=== PATIENT | male | born 1950 | race Caucasian/White ===

== ENCOUNTER 2017-02-17 13:41 | Inpatient (IN) | payer MEDICARE, OTHER ==
[~2017-02-17] VITALS: Ht 170.2 cm; Wt 117.2 kg
[~2017-02-17 13:41] MED LIST: ALPR0.5T6 PO; ASPI81TA3 PO; ATOR20TA38 PO; DIGO125T PO; PANT40TA3 PO; PARO20TA58 PO; WARF6TAB35 PO
--- NOTE | 2017-02-17 14:04 | ERA ---
ER Documentation Chief Complaint Date/Time DATE: 02/17/17 TIME: 14:04 Chief Complaint CHEST PAIN, SOB, SENT BY DR VIJAYA MAIN The patient is a 66-year-old male, presenting to the ER because of palpitation for a week and a half, associated with chest discomfort and dyspnea. He saw his duster tender Dr. Gamez 3 days ago who referred him to [facility] for ablation. He came back to the ER today because of persistent palpitation. He called his duster tender's office Dr. Ba, who referred him to the ER. He denies syncope, near syncope, neck pain, chest pain with exertion of vomiting or diaphoresis. He denies abdominal pain, vomiting, dysuria, diarrhea, constipation. He complains of chronic bilateral lower extremity edema He smokes , denies drinking Past medical history: Dyslipidemia, depression, anxiety, CAD, atrial fibrillation Past surgical history: Stent PCI, pacemaker ROS All systems reviewed and are negative except as per history of present illness. Medications Home Meds Reported Medications Warfarin Sodium* (Coumadin*) 3 Mg Tablet, 9 MG PO SAT AND SUN, TAB 02/17/17 Warfarin Sodium* (Warfarin Sodium*) 6 Mg Tablet, 6 MG PO FRIDAY THRU FRIDAY, TAB 02/17/17 Digoxin* (Digoxin*) 0.125 Mg Tab, 0.125 MG PO DAILY, #30 TAB 01/11/16 Atorvastatin Calcium* (Atorvastatin Calcium*) 20 Mg Tablet, 20 MG PO QHS, #30 TAB 01/11/16 Aspirin* (Aspirin* Chew) 81 Mg Tab.chew, 81 MG PO DAILY, TAB.CHEW 07/22/14 Alprazolam* (Alprazolam*) 0.5 Mg Tablet, 0.5 MG PO BID, TAB 07/22/14 Paroxetine Hcl* (Paxil*) 20 Mg Tablet, 20 MG PO DAILY, TAB 03/07/14 Discontinued Reported Medications Pantoprazole* (Protonix*) 40 Mg Tablet.dr, 40 MG PO DAILY, TAB 04/23/16 Warfarin Sodium* (Warfarin Sodium*) 6 Mg Tablet, 6 MG PO QPM, TAB 05/04/15 Allergies Allergies: Coded Allergies: No Known Allergy (Verified , 02/17/17) PMhx/Soc History of Surgery: Yes (CARDIAC STENT X2) Anesthesia Reaction: No Hx Neurological Disorder: No Hx Respiratory Disorders: No Hx Cardiac Disorders: Yes (A-FIB) Hx Psychiatric Problems: No Hx Miscellaneous Medical Probl: Yes (HLD) Hx Alcohol Use: No Hx Substance Use: No Hx Tobacco Use: Yes (10-15 CIGS/DAY) Physical Exam Vitals Vital Signs Date Time Temp Pulse Resp B/P Pulse Ox O2 Delivery O2 Flow Rate FiO2 02/17/17 14:34 118 18 117/58 98 02/17/17 13:44 97.4 124 18 161/122 96 Physical Exam Const: No acute distress. Head: Atraumatic. Eyes: Normal Conjunctiva. ENT: Normal External Ears, Nose and Mouth. Neck: Full range of motion. No meningismus. Resp: Bibasilar crackle Cardio: Irregularly irregular tachycardic Abd: Soft, non distended, normal bowel sounds, non tender. Skin: No petechiae or rashes. Back: No midline or flank tenderness. Ext: Bilateral leg edema, no calf tenderness Neur: Awake and alert. No focal deficit Psych: Normal Mood and Affect. Result Diagram: 02/17/17 1432 02/17/17 1432 Results 24 hrs Laboratory Tests Test 02/17/17 13:32 02/17/17 14:32 02/17/17 14:50 Prothrombin Time Pending Prothrombin Time Ratio 2.8 INR International Normalized Ratio 3.56 Activated Partial Thromboplast Time 43.9Sec White Blood Count 6.710^3/ul Red Blood Count 4.7010^6/ul Hemoglobin 13.9g/dl Hematocrit 40.4% Mean Corpuscular Volume 86.0fl Mean Corpuscular Hemoglobin 29.6pg Mean Corpuscular Hemoglobin Concent 34.4g/dl Red Cell Distribution Width 13.3% Platelet Count 94551^3/UL Mean Platelet Volume 11.1fl Neutrophils % 53.6% Lymphocytes % 37.3% Monocytes % 6.0% Eosinophils % 2.3% Basophils % 0.5% Nucleated Red Blood Cells % 0.0/100WBC Neutrophils # 3.610^3/ul Lymphocytes # 2.510^3/ul Monocytes # 0.410^3/ul Eosinophils # 0.210^3/ul Basophils # 0.010^3/ul Nucleated Red Blood Cells # 0.010^3/ul Sodium Level 138mmol/L Potassium Level 3.8mmol/L Chloride Level 106mmol/L Carbon Dioxide Level 25mmol/L Anion Gap 11 Blood Urea Nitrogen 18mg/dl Creatinine 1.09mg/dl Glucose Level 113mg/dl Calcium Level 8.8mg/dl Troponin I < 0.012ng/ml B-Type Natriuretic Peptide 849PG/ML Digoxin Level < 0.4ng/ml Current Medications Medications (Trade) Dose Ordered Sig/Beverly Route PRN Reason Start Time Stop Time Status Last Admin Dose Admin Aspirin (Halfprin) 162 mg ONCE ONCE PO 02/17/17 16:00 02/17/17 16:01 DC Nitroglycerin (Nitroglycerin 2% Oint) 1 inch ONCE ONCE TD 02/17/17 16:00 02/17/17 16:01 DC Furosemide (Lasix) 40 mg ONCE ONCE IV 02/17/17 16:00 02/17/17 16:01 DC Procedures/[place] [address] Radiology Main Line: [phone] DIAGNOSTIC IMAGING REPORT Patient: RAS CUEVAS : 1950 Age: 66 Sex: M MR #: [id number] DOS: 02/17/17 1405 Ordering MD: BRADY MENDOZA MD Location: E/R Room/Bed: PROCEDURE: Chest x-ray CLINICAL INDICATION: Chest pain TECHNIQUE: Chest single view COMPARISON: 02/07/2016 FINDINGS: As before there is left chest dual lead pacemaker. Stable mild cardiomegaly seen. Pulmonary vessels are normal in caliber. Lungs clear. Costophrenic angles sharp. Bony thorax is unremarkable IMPRESSION: 1. Stable mild cardiomegaly. 2. Pacemaker RPTAT: HH .Manoj Peña MD, Date Time Electronically viewed and signed by .Manoj Peña MD, on 02/17/2017 14:38 .W/ CC: BRADY MENDOZA MD EKG: Read by emergency physician Rate/Rhythm: Atrial fibrillation 136 beats/min, RVR QRS, ST, T-waves: No ST elevation, no T inversion Impression: Abnormal EKG TSH is pending MEDICAL MAKING DECISION: The patient is a 66-year-old male, presenting with acute atrial fibrillation with rapid ventricular response, acute CHF, acute chest pain syndrome, acute coagulopathy. He was treated with aspirin 160 mg p.o. and 1 inch of nitroglycerin ointment for acute chest pain, Lasix 40 mg IV for acute CHF, digoxin 0.25 mg IV for acute atrial fibrillation with RVR. His heart rate has been running between 100-130 The differential diagnoses considered include but are not limited to acute coronary syndrome, acute myocardial infarction, pericarditis, pulmonary embolism , aortic dissection, pneumonia, pleural effusion, pneumothorax, GERD, chest wall pain, electrolyte imbalance. Critical Care: Time: 35 minutes excluding all billable procedures. Treatments/Evaluations: Close monitoring and treatment of unstable vital signs, cardiorespiratory, and neurologic status, while maintaining tight balance of fluid, respiratory, and cardiac interventions. Consultation: I have tried to contact his duster tender Dr. Ba since the patient arrived, however I was unable to speak with him regarding cardioversion. The patient was treated with digoxin 0.25 mg IV with good response Departure Diagnosis: Primary Impression: Atrial fibrillation with RVR Additional Impressions: CHF (congestive heart failure) Coagulopathy Chest pain Condition: Stable Comments I discussed the findings with the patient. I discussed the patient with the on- call hospitalist Dr. Douglass who was made aware of the lab, the treatment, the patient condition and my inability to contact his duster tender Dr. Ba. The patient is admitted to telemetry at 3:35 PM BRADY MENDOZA MD Feb 17, 2017 14:04
[2017-02-17] MEDS ORDERED: WARF6TAB35 PO (14:36)
[2017-02-17] MEDS ORDERED: WARF3TAB PO (14:36)
--- NOTE | 2017-02-17 14:38 | RADRPT ---
PROCEDURE: Chest x-ray CLINICAL INDICATION: Chest pain TECHNIQUE: Chest single view COMPARISON: 02/07/2016 FINDINGS: As before there is left chest dual lead pacemaker. Stable mild cardiomegaly seen. Pulmonary vessel s are normal in caliber. Lungs clear. Costophrenic angles sharp. Bony thorax is unremarkable IMPRESSION: 1. Stable mild cardiomegaly. 2. Pacemaker RPTAT: HH .Manoj Peña MD, MD Date Time Electronically viewed and signed by .Manoj Peña MD, on 02/17/2017 14:38 .W/
[2017-02-17 14:43] LABS: ADD SCAN DIFF NO
[2017-02-17 14:44] LABS: BASOPHILS % 0.5 % (0.0-2.0); EOSINOPHILS # 0.2 10^3/ul (0.0-0.5); EOSINOPHILS % 2.3 % (0.0-7.0); HEMATOCRIT 40.4 % (42.0-52.0); HEMOGLOBIN 13.9 g/dl (14.0-18.0); LYMPHOCYTES # 2.5 10^3/ul (0.8-2.9); LYMPHOCYTES % 37.3 % (15.0-51.0); MEAN CORPUSCULAR HEMOGLOBIN 29.6 pg (29.0-33.0); MEAN CORPUSCULAR HGB CONC 34.4 g/dl (32.0-37.0); MEAN PLATELET VOLUME 11.1 fl (7.4-10.4); MONOCYTE # 0.4 10^3/ul (0.3-0.9); NEUTROPHIL # 3.6 10^3/ul (1.6-7.5); NEUTROPHILS % 53.6 % (39.0-77.0); PLATELET COUNT 207 10^3/UL (140-415); RED CELL DISTRIBUTION WIDTH 13.3 % (11.5-14.5); WHITE BLOOD COUNT 6.7 10^3/ul (4.8-10.8)
[2017-02-17 15:00] LABS: INR 3.56; PT RATIO 2.8
[2017-02-17 15:01] LABS: PARTIAL THROMBOPLASTIN TIME 43.9 Sec (25.0-35.0)
[2017-02-17 15:05] LABS: ANION GAP 11 (8-16); BLOOD UREA NITROGEN 18 mg/dl (7-20); CALCIUM 8.8 mg/dl (8.4-10.2); CARBON DIOXIDE 25 mmol/L (21-31); CHLORIDE 106 mmol/L (97-110); CREATININE 1.09 mg/dl (0.61-1.24); GLUCOSE 113 mg/dl (70-220); POTASSIUM 3.8 mmol/L (3.5-5.1); SODIUM 138 mmol/L (135-144)
[2017-02-17 15:17] LABS: B-TYPE NATRIURETIC PEPTIDE 849 PG/ML (0-125); TROPONIN-I < 0.012 ng/ml (0.00-0.12)
[2017-02-17] MEDS ORDERED: ASPIRIN (EC) 81 MG TAB PO ONE (16:00)
[2017-02-17] MEDS ORDERED: FUROSEMIDE 40 MG INJ IV ONE (16:00)
[2017-02-17] MEDS ORDERED: NITROGLYCERIN 2% 1 GM OINT PKT TD ONE (16:00)
[2017-02-17 16:26] LABS: PROTIME 34.5 Sec (12.2-14.2)
[2017-02-17] MEDS ORDERED: DIGOXIN 500 MCG INJ IV ONE (16:30)
[2017-02-17] MEDS ORDERED: AMIODARONE 150MG/D5W BOLUS 100 ML IV ONE (19:30)
[2017-02-17] MEDS ORDERED: AMIODARONE 900 MG in DEXTROSE 5% 482 ML IV SCH (19:30)
[2017-02-17] MEDS ORDERED: METOPROLOL 5 MG INJ IV PRN (19:30)
[2017-02-17 20:46] LABS: CREATINE KINASE 37 IU/L (23-200)
[2017-02-17 21:00] LABS: CK-MB 0.56 ng/ml (0.0-2.4); TROPONIN-I < 0.012 ng/ml (0.00-0.12)
[2017-02-17] MEDS: ATENOLOL 25 MG TAB PO SCH (21:00)
[2017-02-17] MEDS: DIGOXIN 500 MCG INJ IV SCH (22:30)
--- NOTE | 2017-02-17 22:31 | CONS ---
DATE OF ADMISSION: 02/17/2017 DATE OF CONSULTATION: 02/17/2017 REASON FOR CONSULTATION: Atrial fibrillation with rapid ventricular response, chest pain. REQUESTING PHYSICIAN: Dr. Mendoza from emergency department. HISTORY OF PRESENT ILLNESS: Mr. Wu is a 66-year-old male known to myself as a primary office pat ient with history of atrial fibrillation, status post prior DC cardioversion in 04/2016 on Coumadin; dyslipidemia, hypertension, coronary artery disease, status post prior PTCA and stent placement in 2011 for acute myocardial infarction, history of myocardial infarction, cardiomyopathy with decrease d left ventricular ejection fraction last known approximately 40% who presented with complaints of p ersistent palpitations, shortness of breath, chest pain. The patient had recently been seen by his primary refrigeration supervisor, Dr. Gamez, who has referred him for outpatient ablation, but patient p resented to [facility] due to uncontrollable symptoms. PAST MEDICAL HISTORY: As above in HPI. MEDICATIONS CURRENTLY IN HOSPITAL: Pending. MEDICATIONS PRIOR TO ADMIT: 1. Coumadin 6 mg alternating with 9 mg. 2. Atorvastatin 20 mg at bedtime. 3. Digoxin 0.125 mg daily. 4. Aspirin 81 mg daily. 5. Xanax 0.5 b.i.d. 6. Paxil 20 mg daily. ALLERGIES: NO KNOWN DRUG ALLERGIES. SOCIAL HISTORY: No tobacco, ETOH, or illicit drug use. FAMILY HISTORY: No history of sudden cardiac or early CAD. REVIEW OF SYSTEMS: As above in HPI. CONSTITUTIONAL: No fevers, chills. PULMONARY: Shortness of breath. CARDIOVASCULAR: Palpitations, atrial fibrillation, cardiomyopathy. GASTROINTESTINAL: No vomiting. GENITOURINARY: No hematuria. MUSCULOSKELETAL: Degenerative joint disease. PSYCHIATRIC: Anxiety. NEUROLOGIC: No documented history of CVA. PHYSICAL EXAMINATION: VITAL SIGNS: Temperature 97.4, blood pressure 109/82, pulse 99, respiratory rate 13, saturating 98% . GENERAL: The patient is alert, awake, complaining of palpitations, shortness of breath. NECK: JVP approximately 8 to 9 cm of water. CHEST: Fair movement throughout with mildly decreased breath sounds at bases bilaterally. HEART: Irregularly irregular, tachycardic, I/ systolic murmur, nondisplaced PMI. ABDOMEN: Positive bowel sounds, soft. EXTREMITIES: Trace edema, 1+ pulses bilaterally, posterior tibial. LABORATORIES: As above in HPI with additionally since admit, BNP of 849. Troponin negative. TSH 2 .17. Sodium 138, potassium 3.8, creatinine 1.0, BUN 18. White blood count 6.7, hemoglobin 13.9, pl atelet count 207. INR supratherapeutic at 3.56. IMAGING STUDIES: As above in HPI. No further imaging studies for my review at this time. ELECTROCARDIOGRAM: As above in HPI. No further electrocardiograms for my review at this time. IMPRESSION: 1. Atrial fibrillation with rapid ventricular response. 2. Abnormal electrocardiogram, assess for acute coronary syndrome. 3. Chest pain, likely secondary to patient's atrial fibrillation with rapid ventricular response __ __. 4. Shortness of breath. 5. History of cardiomyopathy, decreased left ventricular ejection fraction last known approximately 40% by prior echo in 12/2015. 6. Dyslipidemia. 7. Coagulopathy secondary to Coumadin. RECOMMENDATIONS: 1. At this time, I would admit patient to telemetry monitoring and follow rhythm and rate control c losely. 2. Start patient on beta lise to improve symptoms and for treatment of cardiomyopathy and additi onally give patient a very low dose ALLAN inhibitor as tolerated given history of cardiomyopathy. 3. Will give patient amiodarone load in thoughts of attempting real DC cardioversion and SAMEERA on the following day, if the patient does not convert, as the patient is highly symptomatic at this time. 4. Check a TSH to further assess the patient's current thyroid state and its contribution to possib le episodes of atrial fibrillation and rule out the patient for myocardial infarction to ensure the patient's chest pain is not due to acute coronary syndrome, such as acute myocardial infarction. 5. Additionally, will check a fasting lipid panel and initiate lipid-lowering medication as necessa ry. Thank you for allowing me to take part in the care of this patient. I will continue to follow very closely with you with further recommendations to be made as the patient progresses through his [facility] clinical course. Dictated By: MALI NOONAN/ZAKI Conf#: [id number] DID#: [id number] CC: BRADY MENDOZA MD;*EndCC*
[2017-02-17 23:12] VITALS: TEMP 97.7
[2017-02-18] VITALS (11 sets, daily range): BP systolic 111–148; BP diastolic 74–94; PULSE 84–94; RESP 18–20; Ht 170.2 cm; Wt 117.2 kg
[2017-02-18] MEDS: DIGOXIN 500 MCG INJ IV SCH
[2017-02-18] MEDS ORDERED: NACL 0.9% 3 ML SYG IV SCH (01:00)
[2017-02-18] MEDS ORDERED: ZOLPIDEM 5 MG TAB PO PRN (01:00)
[2017-02-18] MEDS ORDERED: MAGNESIUM HYDROXIDE 30ML CUP PO PRN (01:00)
[2017-02-18] MEDS ORDERED: DOCUSATE SODIUM 100 MG CAP PO PRN (01:00)
[2017-02-18] MEDS ORDERED: ACETAMINOPHEN 325 MG TAB PO PRN (01:00)
[2017-02-18] MEDS ORDERED: morphine 2 MG INJ IV PRN (01:00)
[2017-02-18] MEDS ORDERED: HYDROCODONE/APAP (5/325) TAB PO PRN (01:00)
[2017-02-18] MEDS ORDERED: ONDANSETRON 4 MG INJ IV PRN (01:00)
[2017-02-18] MEDS: D5W-0.45 NACL + KCL 20 MEQ 1,000 ML IV SCH ×3 (01:45→20:47)
[2017-02-18 07:56] LABS: ADD SCAN DIFF NO
[2017-02-18 08:06] LABS: BASOPHILS % 0.8 % (0.0-2.0); EOSINOPHILS # 0.2 10^3/ul (0.0-0.5); EOSINOPHILS % 3.4 % (0.0-7.0); HEMATOCRIT 40.3 % (42.0-52.0); HEMOGLOBIN 13.8 g/dl (14.0-18.0); LYMPHOCYTES # 2.2 10^3/ul (0.8-2.9); LYMPHOCYTES % 41.5 % (15.0-51.0); MEAN CORPUSCULAR HEMOGLOBIN 29.6 pg (29.0-33.0); MEAN CORPUSCULAR HGB CONC 34.2 g/dl (32.0-37.0); MEAN CORPUSCULAR VOLUME 86.3 fl (82.0-101.0); MEAN PLATELET VOLUME 11.1 fl (7.4-10.4); MONOCYTE # 0.4 10^3/ul (0.3-0.9); MONOCYTES % 7.4 % (0.0-11.0); NEUTROPHIL # 2.5 10^3/ul (1.6-7.5); NEUTROPHILS % 46.7 % (39.0-77.0); PLATELET COUNT 185 10^3/UL (140-415); RED BLOOD COUNT 4.67 10^6/ul (4.70-6.10); RED CELL DISTRIBUTION WIDTH 13.3 % (11.5-14.5); WHITE BLOOD COUNT 5.3 10^3/ul (4.8-10.8)
--- NOTE | 2017-02-18 08:21 | CONS ---
Date/Time of Note Date/Time of Note DATE: 02/18/17 TIME: 08:19 Assessment/Plan Assessment/Plan Additional Assessment/Plan 1. Atrial fibrillation with rapid ventricular response- rate well rx now - plan for dc/Cv tomorrow. 2. Abnormal electrocardiogram, assess for acute coronary syndrome - a. fib noted. 3. Chest pain, likely secondary to patient's atrial fibrillation with rapid ventricular response - rate better now - pt has Ablation scheduled in mid March. 4. Shortness of breath- better with decreased rate. 5. History of cardiomyopathy, decreased left ventricular ejection fraction last known approximately 40% by prior echo in 12/2015. 6. Dyslipidemia. 7. Coagulopathy secondary to Coumadin- INR in good range. Consultation Date/Type/Reason Admit Date/Time Feb 17, 2017 at 15:40 Initial Consult Date 24 HR Interval Summary Free Text/Dictation NO acute events - rate better controlled - CV planned tomorrow. ROS: No fever, no chills, no nausea, no vomiting, no diarrhea/constipation No recent weight changes No chest pain, no PND, no orthopnea No dizziness, blurred vision No thirst, no heat or cold intolerance Exam/Review of Systems Vital Signs Vitals Vital Signs Date Time Temp Pulse Resp B/P Pulse Ox O2 Delivery O2 Flow Rate FiO2 02/18/17 08:12 98.2 77 18 123/81 95 02/17/17 23:12 Room Air Intake and Output 02/17/17 02/17/17 02/18/17 15:00 23:00 07:00 Intake Total 425 ml Balance 425 ml Exam General: WN/WD/NAD, AOx 3 HEENT: Unicetric/atraumatic/EOMI (follow commands) NECK: JVD elevated, no thyromegaly Lymph: no lymphadenopathy HEART: IR IRregular with no S3, II/ systolic murmur at apex LUNGS: Coarse sounds ABD: soft, NT, ND, +BS : Intact Neuro: non focal SKIN: chronic changes EXT: trace edema Results Result Diagram: 02/18/17 0743 02/17/17 1432 Results 24 hrs Laboratory Tests Test 02/17/17 13:32 02/17/17 14:30 02/17/17 14:32 02/17/17 14:50 Prothrombin Time 34.5 H Prothrombin Time Ratio 2.8 INR International Normalized Ratio 3.56 Activated Partial Thromboplast Time 43.9 H B-Type Natriuretic Peptide 829 H 849 H White Blood Count 6.7 Red Blood Count 4.70 Hemoglobin 13.9 L Hematocrit 40.4 L Mean Corpuscular Volume 86.0 Mean Corpuscular Hemoglobin 29.6 Mean Corpuscular Hemoglobin Concent 34.4 Red Cell Distribution Width 13.3 Platelet Count 207 Mean Platelet Volume 11.1 #H Neutrophils % 53.6 Lymphocytes % 37.3 Monocytes % 6.0 Eosinophils % 2.3 Basophils % 0.5 Nucleated Red Blood Cells % 0.0 Neutrophils # 3.6 Lymphocytes # 2.5 Monocytes # 0.4 Eosinophils # 0.2 Basophils # 0.0 Nucleated Red Blood Cells # 0.0 Sodium Level 138 Potassium Level 3.8 Chloride Level 106 Carbon Dioxide Level 25 Anion Gap 11 Blood Urea Nitrogen 18 Creatinine 1.09 Glucose Level 113 Calcium Level 8.8 Troponin I < 0.012 Thyroid Stimulating Hormone (TSH) 2.170 Digoxin Level < 0.4 L Test 02/17/17 20:00 02/18/17 00:50 02/18/17 07:43 Creatine Kinase 37 Creatine Kinase Index 1.5 Creatinine Kinase MB (Mass) 0.56 Troponin I < 0.012 < 0.012 White Blood Count 5.3 # Red Blood Count 4.67 L Hemoglobin 13.8 L Hematocrit 40.3 L Mean Corpuscular Volume 86.3 Mean Corpuscular Hemoglobin 29.6 Mean Corpuscular Hemoglobin Concent 34.2 Red Cell Distribution Width 13.3 Platelet Count 185 Mean Platelet Volume 11.1 H Neutrophils % 46.7 Lymphocytes % 41.5 Monocytes % 7.4 Eosinophils % 3.4 Basophils % 0.8 Nucleated Red Blood Cells % 0.0 Neutrophils # 2.5 Lymphocytes # 2.2 Monocytes # 0.4 Eosinophils # 0.2 Basophils # 0.0 Nucleated Red Blood Cells # 0.0 Medications Medications Current Medications Atenolol (Tenormin) 25 mg BID PO ; Start 02/17/17 at 21:00 Metoprolol Tartrate 5 mg 5 mg Q4H PRN IV hr>110 hOLD sbp<100; Start 02/17/17 at 19:30 Potassium Chloride/Dextrose/ Sod Cl (D5-1/2ns + KCl 20 Meq) 1,000 ml @ 100 mls/ hr Q10H IV Last administered on 02/18/17t 01:45; Admin Dose 100 MLS/HR; Start 02/18/17 at 00:47 Ondansetron HCl (Zofran Inj) 4 mg Q6H PRN IV NAUSEA AND/OR VOMITING; Start at 01:00 Acetaminophen (Tylenol Tab) 650 mg Q6H PRN PO PAIN LEVEL 1-3 OR FEVER; Start at 01:00 Acetaminophen/ Hydrocodone Bitart (Romance (5/325)) 1 tab Q6H PRN PO MODERATE PAIN LEVEL 4-6; Start 02/18/17 at 01:00 Morphine Sulfate (morphine) 2 mg Q4H PRN IV SEVERE PAIN LEVEL 7-10; Start 02/18 at 01:00 Docusate Sodium (Colace) 100 mg Q12H PRN PO CONSTIPATION; Start 02/18/17 at 01: 00 Magnesium Hydroxide (Milk Of Mag) 30 ml DAILY PRN PO CONSTIPATION; Start at 01:00 Zolpidem Tartrate (Ambien) 5 mg QHS PRN PO SLEEP; Start 02/18/17 at 01:00 Enoxaparin Sodium (Lovenox) 40 mg DAILY SC ; Start 02/18/17 at 09:00 Alprazolam (Xanax) 0.5 mg BID PO ; Start 02/18/17 at 09:00 Aspirin (Aspirin) 81 mg DAILY PO ; Start 02/18/17 at 09:00 Atorvastatin Calcium (Lipitor) 20 mg QHS PO ; Start 02/18/17 at 21:00 Digoxin (Digoxin) 0.125 mg DAILY@13 PO ; Start 02/18/17 at 13:00 Paroxetine HCl (Paxil) 20 mg DAILY PO ; Start 02/18/17 at 09:00 Warfarin Sodium (Coumadin) 6 mg DAILY@17 PO ; Start 02/18/17 at 17:00 RIVER GALLAGHER MD Feb 18, 2017 08:21
[2017-02-18 08:29] LABS: INR 2.74; PROTIME 29.4 Sec (12.2-14.2); PT RATIO 2.3
[2017-02-18 08:39] LABS: CALCIUM 8.9 mg/dl (8.4-10.2); CREATININE 0.98 mg/dl (0.61-1.24)
[2017-02-18 08:51] LABS: T3 UPTAKE 35.4 % (23.5-40.5)
[2017-02-18] MEDS: ATENOLOL 25 MG TAB PO SCH ×2 (09:00→20:38)
[2017-02-18] MEDS ORDERED: ALPRAZOLAM 0.5 MG TAB PO SCH (09:00)
[2017-02-18] MEDS: ASPIRIN 81 MG TAB PO SCH (09:16)
[2017-02-18] MEDS: ALPRAZOLAM 0.25 MG TAB PO SCH ×2 (09:16→20:35)
[2017-02-18] MEDS: PAROXETINE 20 MG TAB PO SCH (09:17)
[2017-02-18] MEDS: ENOXAPARIN 40 MG/0.4 ML SYG SC SCH (09:17)
[2017-02-18 09:41] LABS: CHOL/HDL RATIO 4.7 RATIO
--- NOTE | 2017-02-18 09:54 | HP ---
DATE OF ADMISSION: 02/17/2017 CHIEF COMPLAINT: Palpitations. HISTORY OF PRESENT ILLNESS: The patient is a 66-year-old male with a history of atrial fibrillation , status post prior cardioversion in 2016 as well as reported ablation. The patient is on Coumadin. He does have a history of coronary artery disease status post PCI as well as a history of [place], card iomyopathy with a last known ejection fraction of 40%. The patient does follow up with Dr. Ba and Dr. Gamez. Dr. Gamez did refer him for outpatient ablation, but the patient presents with yessi st pain and palpitations. The patient has no other complaints at this time. PAST MEDICAL HISTORY: As per HPI. MEDICATIONS: 1. Coumadin. 2. Atorvastatin. 3. Digoxin. 4. Aspirin. 5. Xanax. 6. Paxil ALLERGIES: NO KNOWN DRUG ALLERGIES. FAMILY HISTORY: Denies. SOCIAL HISTORY: Denies any tobacco, alcohol, or drug use. REVIEW OF SYSTEMS: A 12-point review of systems is negative except that discussed in the HPI. PHYSICAL EXAMINATION: VITAL SIGNS: Temperature is 98.1, pulse 85, respiratory rate 18, blood pressure is 119/74, saturati on is 95% on room air. GENERAL: No acute distress, alert and oriented. HEENT: Normocephalic, atraumatic. Pupils equal, round, and reactive to light. LUNGS: Clear to auscultation. CARDIOVASCULAR: Irregularly irregular. ABDOMEN: Nondistended, nontender, soft. EXTREMITIES: No clubbing, cyanosis, or edema. LABORATORY DATA: White count 6.7, hemoglobin 13.9, platelets are 207. Chemistry within normal limi ts. Troponins are negative. DIAGNOSTIC DATA: Chest x-ray shows stable mild cardiomegaly, pacemaker. ASSESSMENT AND PLAN: 1. Atrial fibrillation with rapid ventricular response. The patient has been evaluated by Dr. Jose A zhang who is the patient's correctional program specialist. The patient was started on a beta lise. He is also on am iodarone in an attempt to cardiovert. The patient will likely need direct current cardioversion an d transesophageal echocardiogram during this hospitalization if the patient does not convert chemica lly as the patient is symptomatic. The patient's heart rate is currently stable and he is denying a ny chest pain or palpitations at this time. 2. History of myocardial infarction. Continue home medications. 3. History of cardiomyopathy. Continue beta lise and ALLAN inhibitor. 4. Depression. Continue home Paxil. 5. Dyslipidemia. Continue home statin. 6. Prophylaxis. Continue home Coumadin. Dictated By: MU KELLER/ZAKI Conf#: [id number] DID#: [id number]
--- NOTE | 2017-02-18 12:20 | PN ---
DATE: 02/18/2017 SUBJECTIVE: Chart reviewed. The patient currently chest pain free. Telemetry rhythm shows atrial fibrillation with heart rate in about 80s range. All troponins are negative. The patient was seen by Dr. Gamez in cardiology consultation as well. PHYSICAL EXAMINATION: VITAL SIGNS: Blood pressure 111/83, pulse 84, respirations 20, temperature 98.3, saturating 100%. HEENT: Pupils are equal and react to light. Anicteric sclerae. NECK: Supple, no JVD noted, no cervical adenopathy, no carotid bruits heard. LUNGS: Fair breath sounds bilaterally. CARDIOVASCULAR: S1, S2 irregular. ABDOMEN: Soft, nontender. No organomegaly or masses noted. EXTREMITIES: No clubbing, cyanosis, or edema. NEUROLOGICAL: Awake. LABORATORY DATA: Sodium 142, potassium 4.0, chloride 107, CO2 of 28, BUN 16, creatinine 0.98, gluco se 99. WBC 5.3, hemoglobin 13.8, hematocrit 40.3, platelets 185. IMPRESSION: 1. Atrial fibrillation with rapid ventricular response, now heart rate much improved. 2. History of coronary artery disease and myocardial infarction in the past. 3. History of cardiomyopathy. 4. History of depression. 5. History of dyslipidemia. RECOMMENDATIONS: 1. Continue current treatment. 2. Cardiology followup noted. 3. Further per Cardiology. Dictated By: JEMMA DODSON MD, MA/ZAKI Conf#: [id number] DID#: [id number]
[2017-02-18] MEDS: DIGOXIN 0.125 MG TAB PO SCH (13:09)
[2017-02-18] MEDS: WARFARIN 3 MG TAB PO SCH (17:27)
[2017-02-18] MEDS: ATORVASTATIN 20 MG TAB PO SCH (20:35)
[2017-02-19] VITALS (24 sets, daily range): BP systolic 74–148; BP diastolic 51–87; PULSE 78–97; RESP 16–25
[2017-02-19] MEDS: D5W-0.45 NACL + KCL 20 MEQ 1,000 ML IV SCH ×2 (00:13→16:32)
[2017-02-19] MEDS: PAROXETINE 20 MG TAB PO SCH ×2 (09:00→16:29)
[2017-02-19] MEDS: ASPIRIN 81 MG TAB PO SCH (09:00)
[2017-02-19] MEDS: ATENOLOL 25 MG TAB PO SCH ×2 (09:00→20:36)
[2017-02-19] MEDS: ENOXAPARIN 40 MG/0.4 ML SYG SC SCH (09:00)
[2017-02-19] MEDS: ALPRAZOLAM 0.25 MG TAB PO SCH ×3 (09:00→20:36)
[2017-02-19] MEDS: DIGOXIN 0.125 MG TAB PO SCH (13:00)
[2017-02-19] MEDS ORDERED: PROPOFOL 40 ML ONE (13:00)
[2017-02-19] MEDS ORDERED: LIDOCAINE 2% (SDV) 5 ML INJ ONE (13:00)
--- NOTE | 2017-02-19 13:00 | PN ---
DATE: 02/19/2017 SUBJECTIVE: Chart reviewed. The patient remains in atrial fibrillation with controlled heart rate. PHYSICAL EXAMINATION: VITAL SIGNS: Blood pressure 134/87, pulse 80, respirations 20, temperature 97.9, saturating 98%. HEENT: Pupils are equal and react to light. Anicteric sclerae. NECK: Supple, no JVD noted, no cervical adenopathy, no carotid bruits heard. LUNGS: Fair breath sounds bilaterally. CARDIOVASCULAR: S1, S2 irregular. ABDOMEN: Soft, nontender. No organomegaly or masses noted. EXTREMITIES: No clubbing, cyanosis, or edema noted. NEUROLOGICAL: Awake. IMPRESSION: 1. Atrial fibrillation with rapid ventricular response, now heart rate better controlled. 2. History of coronary artery disease and myocardial infarction in the past. 3. History of cardiomyopathy. 4. History of depression. 5. History of dyslipidemia. RECOMMENDATIONS: 1. Continue current treatment. 2. Cardiology followup. Dictated By: JEMMA DODSON MD, MA/ZAKI Conf#: [id number] DID#: [id number]
[2017-02-19] MEDS ORDERED: EPHEDrine SULFATE 50 MG/5 ML SYG ONE (13:03)
--- NOTE | 2017-02-19 13:54 | CONS ---
Date/Time of Note Date/Time of Note DATE: 02/19/17 TIME: 13:50 Assessment/Plan Assessment/Plan Chief Complaint/Hosp Course IMPRESSION: 1. Atrial fibrillation with rapid ventricular response. Now s/p SAMEERA/DCCV with successful conversion back to SR 2. Abnormal electrocardiogram, assess for acute coronary syndrome. 3. Chest pain, likely secondary to patient's atrial fibrillation with rapid ventricular response ____. 4. Shortness of breath. 5. History of cardiomyopathy, decreased left ventricular ejection fraction last known approximately 40% by prior echo in 12/2015. 6. Dyslipidemia. 7. Coagulopathy secondary to Coumadin. Recc: -Tele -Continue BB -Continue coumadin and d/c lovenox -start po amiodarine in attempt to maintain SR -Continue statin/digoxin/atenolol -Follow INR closely Problems: Consultation Date/Type/Reason Admit Date/Time Feb 17, 2017 at 15:40 Initial Consult Date 02/17/2017 Type of Consultation: Cardiology Reason for Consultation AF Referring Provider: SAMIR FISHER Exam/Review of Systems Vital Signs Vitals Vital Signs Date Time Temp Pulse Resp B/P Pulse Ox O2 Delivery O2 Flow Rate FiO2 02/19/17 12:28 95 02/19/17 12:02 97.9 20 134/87 98 02/17/17 23:12 Room Air Intake and Output 02/18/17 02/18/17 02/19/17 15:00 23:00 07:00 Intake Total 100 ml 900 ml 1040 ml Balance 100 ml 900 ml 1040 ml Exam Review of Systems: CONSTITUTIONAL: No fevers, chills. PULMONARY: Sob CARDIOVASCULAR: Positive chest pain/palpitations GASTROINTESTINAL: No nausea/vomiting. GENITOURINARY: No hematuria/dysuria. MUSCULOSKELETAL: No myagias/arthalgias. PSYCHIATRIC: The patient denies depression. NEUROLOGIC: No weakness Constitutional: alert, oriented Psych: no complaints Head: normocephalic ENMT: mucosa pink and moist Neck: jvd (8 cm water), supple Respiratory: clear to auscultation Cardiovascular: regular rate and rhythm Gastrointestinal: non-tender, soft Musculoskeletal: muscle tone (normal) Extremities: other (None) Neurological: other (No focal deficits) Results Result Diagram: 02/18/17 0743 02/18/17 0743 Medications Medications Current Medications Atenolol (Tenormin) 25 mg BID PO ; Start 02/17/17 at 21:00 Metoprolol Tartrate 5 mg 5 mg Q4H PRN IV hr>110 hOLD sbp<100; Start 02/17/17 at 19:30 Potassium Chloride/Dextrose/ Sod Cl (D5-1/2ns + KCl 20 Meq) 1,000 ml @ 100 mls/ hr Q10H IV Last administered on 02/19/17 00:13; Admin Dose 100 MLS/HR; Start 02/18/17 at 00:47 Ondansetron HCl (Zofran Inj) 4 mg Q6H PRN IV NAUSEA AND/OR VOMITING; Start at 01:00 Acetaminophen (Tylenol Tab) 650 mg Q6H PRN PO PAIN LEVEL 1-3 OR FEVER; Start at 01:00 Acetaminophen/ Hydrocodone Bitart ([place] (5/325)) 1 tab Q6H PRN PO MODERATE PAIN LEVEL 4-6; Start 02/18/17 at 01:00 Morphine Sulfate (morphine) 2 mg Q4H PRN IV SEVERE PAIN LEVEL 7-10; Start 02/18 at 01:00 Docusate Sodium (Colace) 100 mg Q12H PRN PO CONSTIPATION; Start 02/18/17 at 01: 00 Magnesium Hydroxide (Milk Of Mag) 30 ml DAILY PRN PO CONSTIPATION; Start at 01:00 Zolpidem Tartrate (Ambien) 5 mg QHS PRN PO SLEEP; Start 02/18/17 at 01:00 Enoxaparin Sodium (Lovenox) 40 mg DAILY SC Last administered on 02/18/17 09:17 ; Admin Dose 40 MG; Start 02/18/17 at 09:00 Aspirin (Aspirin) 81 mg DAILY PO Last administered on 02/18/17 09:16; Admin Dose 81 MG; Start 02/18/17 at 09:00 Atorvastatin Calcium (Lipitor) 20 mg QHS PO Last administered on 02/18/17 20: 35; Admin Dose 20 MG; Start 02/18/17 at 21:00 Digoxin (Digoxin) 0.125 mg DAILY@13 PO Last administered on 02/18/17 13:09; Admin Dose 0.125 MG; Start 02/18/17 at 13:00 Paroxetine HCl (Paxil) 20 mg DAILY PO Last administered on 02/18/17 09:17; Admin Dose 20 MG; Start 02/18/17 at 09:00 Warfarin Sodium (Coumadin) 6 mg DAILY@17 PO Last administered on 02/18/17 17: 27; Admin Dose 6 MG; Start 02/18/17 at 17:00 Alprazolam (Xanax) 0.5 mg BID PO Last administered on 02/18/17 20:35; Admin Dose 0.5 MG; Start 02/18/17 at 09:00 MALI LILLY Feb 19, 2017 13:54
--- NOTE | 2017-02-19 14:06 | CARRPT ---
DATE OF PROCEDURE: 02/19/2017 TYPE OF PROCEDURE: 1. Transesophageal echo. 2. Direct current cardioversion for atrial fibrillation successfully to sinus rhythm. Shock x2 100 and then 150 joules. ATTENDING PHYSICIAN: Dr. Mali Ba. REFERRING PHYSICIAN: Hospitalist, Dr. Fisher TYPE OF ANESTHESIA: MAC under direction of anesthesiologist at bedside with propofol. BRIEF HISTORY: Mr. Wu is a 66-year-old male with history of hypertension, dyslipidemia, paroxysm al atrial fibrillation status post prior DC cardioversion, who has had return of atrial fibrillation, highly symptomatic with shortness of breath, chest pain, palpitations, dizz iness. DESCRIPTION OF PROCEDURE: After informed consent was obtained, the patient was brought to the [facility] cardiac catheterization lab holding room where he was placed on continuous t elemetry monitoring and O2 saturation monitoring and blood pressure cuff cycling every 3 minutes. T he patient had a bite block placed in his mouth and under direction of anesthesiologist, was given p ropofol, MAC anesthesia in order to achieve adequate local anesthesia. At this time, the patient's esophagus was intubated with transesophageal echo probe and using multiplanar imaging and color flow Doppler interrogation, the patient's intracardiac structures were adequately interrogated and with no findings of left atrial appendage thrombus, spontaneous contrast, left atrial appendage velocity greater than ____second and additionally no left ventricular thrombus noted. Subsequently, at this time, the probe was removed. The patient received a shock of 100 joules, unsuccessful in returning him to sinus rhythm and then a shock sync mode 150 joules, which was successful at returning him to sinus rhythm. The patient was allowed to awake from his anesthetized state. This completed the pro cedure. There were no noted complications. FINDINGS: Transesophageal echo showed the patient to have no thrombus or spontaneous contrast from t he left atrial appendage or left atrium Left atrial appendage velocity approximately 50 cm per secon d. Additionally, the patient had no findings of left ventricular thrombus. Direct current cardioversion: The patient received 2 shocks at 100 and followed with 150 joules in sync mode with a second shock successfully returning the patient to sinus rhythm. RECOMMENDATIONS: 1. At this time, patient will be about completely awake from his anesthetized state. 2. Patient will then receive sips of clear liquids and then his diet will be advanced back to full as tolerated. 3. Patient will be continued as medical therapy and will be initiated on p.o. amiodarone in an atte mpt to maintain the patient in sinus rhythm. Dictated By: MALI NOONAN/ZAKI Conf#: [id number] DID#: [id number] CC: SAMIR FISHER;*EndCC*
[2017-02-19] MEDS ORDERED: LEVALBUTEROL (NEB) 0.63 MG/3 ML AMP HHN PRN (14:30)
[2017-02-19] MEDS ORDERED: IPRATROPIUM (NEB) 0.5 MG/2.5 ML AMP HHN PRN (14:30)
[2017-02-19] MEDS: WARFARIN 3 MG TAB PO SCH (16:28)
--- NOTE | 2017-02-19 16:48 | RADRPT ---
Echocardiogram Report Patient Name: RAS CUEVAS Gender: Male Date: 1950 Study Date: 18-Feb-2017 Show Jumping Instructor: Steve Land [facility] Location: [id number] Ref. Physician: MALI BA Quality: Good Procedures: Transthoracic echocardiogram with complete 2D, M-Mode, and doppler examination. Indications: Cardiomyopathy. 2D/M Mode Doppler Measurement Value Normal Ranges Measurement Value Normal Ranges LVIDd 2D 3.6 3.5 - 5.6 cm AV Peak Siva 1.1 m/sec LVIDs 2D 2.9 2.1 - 4.1 cm AV Peak PG 5.0 mmHg LVPWd 2D 1.1 0.6 - 1.1 cm LVOT Peak Siva 0.8 m/sec IVSd 2D 1.2 0.6 - 1.1 cm LVOT Peak PG 2.5 mmHg AoR Diam 2D 3.0 2.0 - 3.7 cm MV E Peak Siva 0.7 m/sec EDV 2D 54.6 cm3 MV A Peak Siva 0.6 m/sec ESV 2D 23.8 cm3 MV E/A 1.2 LA Dimen 2D 4.0 2.3 - 4.0 cm MV Decel Time 274 msec MV Decel [place] 2 MV E/A 1.2 Findings Left Ventricle: Normal left ventricular systolic function. Normal left ventricular cavity size. Mild concentric left ventricular hypertrophy. Ejection fraction is visually estimated at 55 %. Right Ventricle: Normal right ventricular size. Normal right ventricular systolic function. Left Atrium: Upper limit of normal left atrial size. Right Atrium: The right atrium is normal in size. Mitral Valve: Normal appearance and function of the mitral valve with trace physiologic regurgitation. Aortic Valve: No hemodynamically significant aortic stenosis by doppler. Aortic cusps appear mildly calcified. Mild aortic valve regurgitation. Tricuspid Valve: Normal appearance of the tricuspid valve. Unable to obtain RVSP due to minimal presence of tricuspid regurgitation. Pulmonic Valve: Pulmonic valve not well visualized. There is trace pulmonic regurgitation. Pericardium: Normal pericardium with no significant pericardial effusion. Aorta: Normal aortic root. IVC: Normal size and normal respiratory collapse consistent with normal right atrial pressure. Conclusions 1.Normal left ventricular systolic function. Normal left ventricular cavity size. Mild concentric left ventricular hypertrophy. Ejection fraction is visually estimated at 55 %. 2.Normal appearance and function of the mitral valve with trace physiologic regurgitation. 3.Normal appearance of the tricuspid valve. Unable to obtain RVSP due to minimal presence of tricuspid regurgitation. 4.Pulmonic valve not well visualized. There is trace pulmonic regurgitation. Electronically Signed By: Mali Ba 19-Feb-2017 16:47:50 -0700 Patient Name: RAS CUEVAS Study Date: 18-Feb-[id number]
[2017-02-19] MEDS: AMIODARONE 200 MG TAB PO SCH (20:35)
[2017-02-19] MEDS: ATORVASTATIN 20 MG TAB PO SCH (20:36)
[2017-02-20] VITALS (11 sets, daily range): BP systolic 85–144; BP diastolic 44–82; PULSE 66–80; RESP 14–18
[2017-02-20] MEDS: D5W-0.45 NACL + KCL 20 MEQ 1,000 ML IV SCH ×3 (03:23→20:33)
[2017-02-20 08:27] LABS: INR 2.66; PROTIME 28.7 Sec (12.2-14.2); PT RATIO 2.2
[2017-02-20] MEDS: ATENOLOL 25 MG TAB PO SCH ×2 (08:44→20:52)
[2017-02-20] MEDS: AMIODARONE 200 MG TAB PO SCH ×2 (08:47→20:53)
[2017-02-20] MEDS: ASPIRIN 81 MG TAB PO SCH (08:47)
[2017-02-20] MEDS: ALPRAZOLAM 0.25 MG TAB PO SCH ×2 (08:47→20:53)
[2017-02-20] MEDS: PAROXETINE 20 MG TAB PO SCH (08:47)
[2017-02-20] MEDS: ENOXAPARIN 40 MG/0.4 ML SYG SC SCH (08:52)
[2017-02-20] MEDS: DIGOXIN 0.125 MG TAB PO SCH (13:13)
--- NOTE | 2017-02-20 14:21 | PN ---
DATE: 02/20/2017 INTERNAL MEDICINE FOLLOWUP SUBJECTIVE: Chart reviewed. The patient underwent direct cardioversion. Current rhythm shows norm al sinus rhythm at A heart rate of about 66. The patient denies any chest pain, shortness of breath , or other complaints. PHYSICAL EXAMINATION: VITAL SIGNS: Blood pressure 103/64, pulse 66, respirations 14, temperature 98.4. Saturating 100%. HEENT: Pupils are equal and reactive to light. Anicteric sclerae. NECK: Supple, no JVD noted, no cervical adenopathy noted, no carotid bruits heard. LUNGS: Clear to auscultation and percussion. CARDIOVASCULAR: S1, S2 normal. ABDOMEN: Soft, nontender. No organomegaly or masses noted. EXTREMITIES: No clubbing, cyanosis, or edema noted. NEUROLOGICAL: Awake and alert. IMPRESSION: 1. Atrial fibrillation with rapid ventricular response, status post cardioversion, now in sinus rhy thm. 2. History of coronary artery disease and myocardial infarction in the past. 3. History of cardiomyopathy. 4. History of depression. 5. History of dyslipidemia. RECOMMENDATIONS: 1. Continue current treatment. 2. Check PT/INR. 3. Cardiology followup. 4. Most likely will be ready for discharge tomorrow morning. Dictated By: JEMMA DODSON MD, MA/ZAKI Conf#: [id number] DID#: [id number]
[2017-02-20] MEDS: WARFARIN 3 MG TAB PO SCH (17:20)
--- NOTE | 2017-02-20 18:49 | CONS ---
Date/Time of Note Date/Time of Note DATE: 02/20/17 TIME: 18:45 Assessment/Plan Assessment/Plan Chief Complaint/Hosp Course IMPRESSION: 1. Atrial fibrillation with rapid ventricular response. Now s/p SAMEERA/DCCV with successful conversion back to SR and remains in SR 2. Abnormal electrocardiogram, assess for acute coronary syndrome. 3. Chest pain, likely secondary to patient's atrial fibrillation with rapid ventricular response as now improved with DCCV to SR and trop neg x 3 4. Shortness of breath. 5. History of cardiomyopathy, decreased left ventricular ejection fraction last known approximately 40% by prior echo in 12/2015. 6. Dyslipidemia. 7. Coagulopathy secondary to Coumadin.-therapeutic Recc: -Tele -Continue BB as tolerated only given marginal BP -Continue coumadin and d/c lovenox -Continue po amiodarine in attempt to maintain SR and will discuss with patient who is currently refusing -Continue statin/digoxin -Follow INR closely Problems: Consultation Date/Type/Reason Admit Date/Time Feb 17, 2017 at 15:40 Initial Consult Date 02/17/2017 Type of Consultation: Cardiology Reason for Consultation AF Referring Provider: SAMIR FISHER Exam/Review of Systems Vital Signs Vitals Vital Signs Date Time Temp Pulse Resp B/P Pulse Ox O2 Delivery O2 Flow Rate FiO2 02/20/17 17:31 2.0 02/20/17 16:08 69 02/20/17 15:19 98.7 14 118/78 98 02/19/17 20:00 Nasal Cannula Intake and Output 02/19/17 02/19/17 02/20/17 15:00 23:00 07:00 Intake Total 580 ml 800 ml Balance 580 ml 800 ml Exam Review of Systems: CONSTITUTIONAL: No fevers, chills. PULMONARY: No sob CARDIOVASCULAR: No chest pain/palpitations GASTROINTESTINAL: No nausea/vomiting. GENITOURINARY: No hematuria/dysuria. MUSCULOSKELETAL: No myagias/arthalgias. PSYCHIATRIC: The patient denies depression. NEUROLOGIC: No weakness Constitutional: alert, oriented Psych: no complaints Head: normocephalic ENMT: mucosa pink and moist Neck: jvd (9 cm water), supple Respiratory: clear to auscultation Cardiovascular: regular rate and rhythm Gastrointestinal: non-tender, soft Musculoskeletal: muscle tone (normal) Extremities: edema (none) Neurological: other (No focal deficits) Results Result Diagram: 02/18/17 0743 02/18/17 0743 Results 24 hrs Laboratory Tests Test 02/20/17 06:55 Prothrombin Time 28.7 H Prothrombin Time Ratio 2.2 INR International Normalized Ratio 2.66 Medications Medications Current Medications Atenolol (Tenormin) 25 mg BID PO ; Start 02/17/17 at 21:00 Metoprolol Tartrate 5 mg 5 mg Q4H PRN IV hr>110 hOLD sbp<100; Start 02/17/17 at 19:30 Potassium Chloride/Dextrose/ Sod Cl (D5-1/2ns + KCl 20 Meq) 1,000 ml @ 100 mls/ hr Q10H IV Last administered on 02/20/17 03:23; Admin Dose 100 MLS/HR; Start 02/18/17 at 00:47 Ondansetron HCl (Zofran Inj) 4 mg Q6H PRN IV NAUSEA AND/OR VOMITING; Start at 01:00 Acetaminophen (Tylenol Tab) 650 mg Q6H PRN PO PAIN LEVEL 1-3 OR FEVER; Start at 01:00 Acetaminophen/ Hydrocodone Bitart ([place] (5/325)) 1 tab Q6H PRN PO MODERATE PAIN LEVEL 4-6; Start 02/18/17 at 01:00 Morphine Sulfate (morphine) 2 mg Q4H PRN IV SEVERE PAIN LEVEL 7-10; Start 02/18 at 01:00 Docusate Sodium (Colace) 100 mg Q12H PRN PO CONSTIPATION; Start 02/18/17 at 01: 00 Magnesium Hydroxide (Milk Of Mag) 30 ml DAILY PRN PO CONSTIPATION; Start at 01:00 Zolpidem Tartrate (Ambien) 5 mg QHS PRN PO SLEEP; Start 02/18/17 at 01:00 Enoxaparin Sodium (Lovenox) 40 mg DAILY SC Last administered on 02/20/17 08:52 ; Admin Dose 40 MG; Start 02/18/17 at 09:00 Aspirin (Aspirin) 81 mg DAILY PO Last administered on 02/20/17 08:47; Admin Dose 81 MG; Start 02/18/17 at 09:00 Atorvastatin Calcium (Lipitor) 20 mg QHS PO Last administered on 02/19/17 20: 36; Admin Dose 20 MG; Start 02/18/17 at 21:00 Digoxin (Digoxin) 0.125 mg DAILY@13 PO Last administered on 02/20/17 13:13; Admin Dose 0.125 MG; Start 02/18/17 at 13:00 Paroxetine HCl (Paxil) 20 mg DAILY PO Last administered on 02/20/17 08:47; Admin Dose 20 MG; Start 02/18/17 at 09:00 Warfarin Sodium (Coumadin) 6 mg DAILY@17 PO Last administered on 02/20/17 17: 20; Admin Dose 6 MG; Start 02/18/17 at 17:00 Alprazolam (Xanax) 0.5 mg BID PO Last administered on 02/20/17 08:47; Admin Dose 0.5 MG; Start 02/18/17 at 09:00 Amiodarone HCl (Cordarone) 200 mg BID PO ; Start 02/19/17 at 21:00 MALI LILLY Feb 20, 2017 18:49
[2017-02-20] MEDS: ATORVASTATIN 20 MG TAB PO SCH (20:53)
[2017-02-21] VITALS (8 sets, daily range): BP systolic 104–132; BP diastolic 57–81; PULSE 69–75; RESP 14–17
[2017-02-21 08:25] LABS: INR 2.52; PROTIME 27.5 Sec (12.2-14.2); PT RATIO 2.1
[2017-02-21] MEDS: D5W-0.45 NACL + KCL 20 MEQ 1,000 ML IV SCH (08:43)
[2017-02-21] MEDS: ATENOLOL 25 MG TAB PO SCH (09:00)
--- NOTE | 2017-02-21 09:01 | CONS ---
Date/Time of Note Date/Time of Note DATE: 02/21/17 TIME: 08:59 Assessment/Plan Assessment/Plan Additional Assessment/Plan 1. Atrial fibrillation with rapid ventricular response- s/p CV - now in sinus. Plan for dispo - outpt EPS/ablation planned. 2. Abnormal electrocardiogram, assess for acute coronary syndrome - a. fib noted. 3. Chest pain, likely secondary to patient's atrial fibrillation with rapid ventricular response - rate better now - pt has Ablation scheduled in mid March. 4. Shortness of breath- better with decreased rate. 5. History of cardiomyopathy, decreased left ventricular ejection fraction last known approximately 40% by prior echo in 12/2015. 6. Dyslipidemia. 7. Coagulopathy secondary to Coumadin- INR in good range. Consultation Date/Type/Reason Admit Date/Time Feb 17, 2017 at 15:40 Type of Consultation: Cardiology Referring Provider: SAMIR FISHER 24 HR Interval Summary Free Text/Dictation NOW in sinus - feels well- dispo in plan - outpt EPS to follow. ROS: No fever, no chills, no nausea, no vomiting, no diarrhea/constipation No recent weight changes No chest pain, no PND, no orthopnea No dizziness, blurred vision No thirst, no heat or cold intolerance Exam/Review of Systems Vital Signs Vitals Vital Signs Date Time Temp Pulse Resp B/P Pulse Ox O2 Delivery O2 Flow Rate FiO2 02/21/17 08:31 70 02/21/17 07:40 98.4 14 115/57 93 02/20/17 20:00 2.0 02/19/17 20:00 Nasal Cannula Intake and Output 02/20/17 02/20/17 02/21/17 15:00 23:00 07:00 Intake Total 1240 ml 200 ml Balance 1240 ml 200 ml Exam General: WN/WD/NAD, AOx 3 HEENT: Unicetric/atraumatic/EOMI (follows commands) NECK: JVD elevated, no thyromegaly Lymph: no lymphadenopathy HEART: regular with no S3, II/ systolic murmur at apex LUNGS: Coarse sounds ABD: soft, NT, ND, +BS : Intact Neuro: non focal SKIN: chronic changes EXT: trace edema Results Result Diagram: 02/18/17 0743 02/18/17 0743 Results 24 hrs Laboratory Tests Test 02/21/17 07:15 Prothrombin Time 27.5 H Prothrombin Time Ratio 2.1 INR International Normalized Ratio 2.52 Medications Medications Current Medications Metoprolol Tartrate 5 mg 5 mg Q4H PRN IV hr>110 hOLD sbp<100; Start 02/17/17 at 19:30 Potassium Chloride/Dextrose/ Sod Cl (D5-1/2ns + KCl 20 Meq) 1,000 ml @ 100 mls/ hr Q10H IV Last administered on 02/20/17 03:23; Admin Dose 100 MLS/HR; Start 02/18/17 at 00:47 Ondansetron HCl (Zofran Inj) 4 mg Q6H PRN IV NAUSEA AND/OR VOMITING; Start at 01:00 Acetaminophen (Tylenol Tab) 650 mg Q6H PRN PO PAIN LEVEL 1-3 OR FEVER; Start at 01:00 Acetaminophen/ Hydrocodone Bitart ([place] (5/325)) 1 tab Q6H PRN PO MODERATE PAIN LEVEL 4-6; Start 02/18/17 at 01:00 Morphine Sulfate (morphine) 2 mg Q4H PRN IV SEVERE PAIN LEVEL 7-10; Start 02/18 at 01:00 Docusate Sodium (Colace) 100 mg Q12H PRN PO CONSTIPATION; Start 02/18/17 at 01: 00 Magnesium Hydroxide (Milk Of Mag) 30 ml DAILY PRN PO CONSTIPATION; Start at 01:00 Zolpidem Tartrate (Ambien) 5 mg QHS PRN PO SLEEP; Start 02/18/17 at 01:00 Aspirin (Aspirin) 81 mg DAILY PO Last administered on 02/20/17 08:47; Admin Dose 81 MG; Start 02/18/17 at 09:00 Atorvastatin Calcium (Lipitor) 20 mg QHS PO Last administered on 02/20/17 20: 53; Admin Dose 20 MG; Start 02/18/17 at 21:00 Digoxin (Digoxin) 0.125 mg DAILY@13 PO Last administered on 02/20/17 13:13; Admin Dose 0.125 MG; Start 02/18/17 at 13:00 Paroxetine HCl (Paxil) 20 mg DAILY PO Last administered on 02/20/17 08:47; Admin Dose 20 MG; Start 02/18/17 at 09:00 Warfarin Sodium (Coumadin) 6 mg DAILY@17 PO Last administered on 02/20/17 17: 20; Admin Dose 6 MG; Start 02/18/17 at 17:00 Alprazolam (Xanax) 0.5 mg BID PO Last administered on 02/20/17 20:53; Admin Dose 0.5 MG; Start 02/18/17 at 09:00 Amiodarone HCl (Cordarone) 200 mg BID PO ; Start 02/19/17 at 21:00 Atenolol (Tenormin) 12.5 mg BID PO ; Start 02/20/17 at 21:00 RIVER GALLAGHER MD Feb 21, 2017 09:01
[2017-02-21] MEDS: ALPRAZOLAM 0.25 MG TAB PO SCH (10:03)
[2017-02-21] MEDS: AMIODARONE 200 MG TAB PO SCH (10:03)
[2017-02-21] MEDS: PAROXETINE 20 MG TAB PO SCH (10:03)
[2017-02-21] MEDS: ASPIRIN 81 MG TAB PO SCH (10:03)
--- NOTE | 2017-02-21 10:11 | RADRPT ---
Vent Rate: 84 bpm RR Interval: 0 msec FL Interval: 132 msec QRS Duration: 78 msec QT Interval: 346 msec QTC Interval: 408 msec P-R-T [place]: 96 - 51 - 69 degrees Normal sinus rhythm ST abnormality, possible digitalis effect Abnormal ECG Electronically Signed By: Evan Gamez [id number]
--- NOTE | 2017-02-21 14:13 | DS ---
DATE OF ADMISSION: 02/17/2017 DATE OF DISCHARGE: 02/21/2017 DISCHARGE DIAGNOSES: 1. Atrial fibrillation with rapid ventricular response. 2. Status post cardioversion. 3. History of coronary artery disease and myocardial infarction in the past. 4. History of cardiomyopathy. 5. History of depression. 6. History of dyslipidemia. HOSPITAL COURSE: This is a 66-year-old gentleman with a history of paroxysmal atrial fibrillation i n the past, who was brought in with palpitations and found to be in atrial fibrillation with rapid v entricular response. The patient was seen by Dr. Gamez. The patient subsequently required cardiove rsion and has since remained in normal sinus rhythm. Patient is now stable and is being discharged home. DISCHARGE INSTRUCTIONS: Cardiac diet. ACTIVITY: As tolerated. DISCHARGE MEDICATIONS: The patient will continue all his home medications, includin. Coumadin. 2. Atorvastatin. 3. Digoxin. 4. Aspirin. 5. Xanax. 6. Paxil. Follow up with Dr. Gamez, Dr. Ba and primary care physician. Medication reconciliation has bee n done. Dictated By: JEMMA DODSON MD, MA/ZAKI Conf#: [id number] DID#: [id number]
[2017-02-21] MEDS: DIGOXIN 0.125 MG TAB PO SCH (14:33)
== END 2017-02-21 15:15 | disposition home or self-care (01) | DRG 310 ==
LOC: E/R 13:41 → MS4 15:40
PROVIDERS: ADMIT Hospitalist; ATTEND Hospitalist
DX: I48.91 Unspecified atrial fibrillation (principal); E78.5 Hyperlipidemia, unspecified; I25.2 Old myocardial infarction
CPT/HCPCS: 36415; 71010; 80048; 80061; 80162; 82550; 82553; 83036; 83735; 83880; 84436; 84443; 84479; 84484; 85025; 85610; 85730; 93005; 93306; 93312; 93325; 94640; 96374; 96375; J0282; J1650; J1940; J3480; J7060

== ENCOUNTER 2018-01-15 10:04 | Day surgery (SDC) | END 2018-01-15 15:20 | disposition home or self-care (01) ==

== ENCOUNTER 2018-05-12 07:55 | Inpatient (IN) | END 2018-05-13 13:00 | disposition home or self-care (01) | DRG 310 ==

== ENCOUNTER 2019-01-22 11:05 | Inpatient (IN) | payer MEDICARE, MEDICAID ==
[~2019-01-22] VITALS: Ht 170.2 cm; Wt 115.2 kg
[~2019-01-22 11:05] MED LIST changes: +ASPI-817 PO; -ASPI81TA3 PO; -DIGO125T PO; -PANT40TA3 PO; -PARO20TA58 PO; +PARO40TA63 PO; -WARF6TAB35 PO; +WARF6TAB48 PO
[2019-01-22] MEDS ORDERED: DILTIAZEM 25 MG INJ ONE (11:35)
[2019-01-22] MEDS: DILTIAZEM 25 MG INJ IV ONE ×4 (11:35→12:19)
[2019-01-22] MEDS: DILTIAZEM 30 MG TAB PO SCH ×2 (11:55→23:17)
[2019-01-22] MEDS ORDERED: SOD CHLORIDE 0.9% 500 ML IV ONE (12:00)
[2019-01-22] MEDS ORDERED: DIGOXIN 500 MCG INJ IV ONE (12:00)
[2019-01-22] MEDS ORDERED: WARF6TAB48 PO (12:08)
[2019-01-22] MEDS ORDERED: WARF3TAB PO (12:08)
--- NOTE | 2019-01-22 12:27 | ERD ---
ER Documentation Chief Complaint Chief Complaint pt is bib friend with c/o chest "pressure" dizziness palpataions hx afib HPI 68 year old male presents to the emergency department complaining of palpitations and chest pain. Patient has a history of chronic intermittent atrial fibrillation. He states he was in his normal state of health until the last 24 hours which time he began to feel his normal palpitations. This continued over the course of the last 8 hours and got worse with associated chest pressure and a nonspecific di zziness/lightheadedness. His chest pressure is nonspecific, in the center part of her chest and does not radiate. Its associate with the palpitations. Patient reports feeling slightly short of breath. He reports the symptoms is mild to moderate. ROS All systems reviewed and are negative except as per history of present illness. Medications Home Meds Reported Medications Warfarin Sodium* (Coumadin*) 3 Mg Tablet, 3 MG PO TUE,THUR, TAB 01/22/19 Warfarin Sodium* (Warfarin Sodium*) 6 Mg Tablet, 6 MG PO SUN,MON,WED,FRI,SAT, TAB 01/22/19 Paroxetine Hcl* (Paxil*) 40 Mg Tablet, 40 MG PO HS, TAB 10/09/18 Atorvastatin Calcium* (Atorvastatin Calcium*) 20 Mg Tablet, 20 MG PO QHS, #30 TAB 10/09/18 Aspirin* (Aspirin* EC) 81 Mg Tablet.dr, 81 MG PO DAILY, TAB 10/09/18 Alprazolam* (Alprazolam*) 0.5 Mg Tablet, 0.5 MG PO BID PRN for ANXIETY, TAB 10/09/18 Discontinued Reported Medications Warfarin Sodium* (Warfarin Sodium*) 6 Mg Tablet, 6 MG PO DAILY, TAB 10/09/18 Allergies Allergies: Coded Allergies: atenolol (Verified Allergy, Mild, SOB, 01/22/19) PT STATED "FEEL LIKE CHOKING" metoprolol (Verified Allergy, Mild, SOB, 01/22/19) PT STATED "FEEL LIKE CHOKING" ticagrelor (Verified Allergy, Mild, SOB, 01/22/19) PT STATED "FEEL LIKE CHOKING' PMhx/Soc History of Surgery: Yes (Cardiac Stents, Pacemaker) Anesthesia Reaction: No Hx Neurological Disorder: No Hx Respiratory Disorders: No Hx Cardiac Disorders: Yes (A-Fib, High Cholesterol) Hx Psychiatric Problems: No Hx Alcohol Use: Yes (Rarely) Hx Substance Use: No Hx Tobacco Use: Yes Smoking Status: Current some day smoker FmHx Noncontributory for chief complaint Physical Exam Vitals Vital Signs Date Temp Pulse Resp B/P (MAP) Pulse Ox O2 O2 Flow FiO2 Time Delivery Rate 01/22/19 Nasal 2 11:21 Cannula 01/22/19 98.3 159 20 118/62 99 11:06 (80) Physical Exam GENERAL: The patient is well developed and appropriate for usual state of health in no apparent distress HEENT: Pupils equal, round, and reactive to light. EOMI. There is no scleral icterus. NECK: C-spine is soft and supple, there is no meningismus. There is no cervical lymphadenopathy. LUNGS: Clear to auscultation bilaterally. There are no rales, wheezes or rhonchi. HEART: Rapid, irregularly irregular rate and rhythm with no murmurs rubs or gallops ABDOMEN: Soft, non-tender, non-distended. There are bowel sounds in all four quadrants. No rebound or guarding. EXTREMITIES: There is no peripheral cyanosis or edema. No focal swelling or erythema. NEURO: The patient moves all four extremities with 5/5 strength. Cranial nerves II - XII are intact. Normal gait. Alert and oriented SKIN: There is no apparent rash or petechiae. HEME/LYMPHATIC: There is no evidence of excessive bruising or lymphedema. PSYCHIATRIC: The patient does not appear anxious or depressed. Result Diagram: 01/22/19 1130 01/22/19 1130 Results 24 hrs Laboratory Tests Test 01/22/19 11:30 White Blood Count 7.5 10^3/ul Red Blood Count 5.09 10^6/ul Hemoglobin 14.3 g/dl Hematocrit 43.9 % Mean Corpuscular Volume 86.2 fl Mean Corpuscular Hemoglobin 28.1 pg Mean Corpuscular Hemoglobin Concent 32.6 g/dl Red Cell Distribution Width 13.6 % Platelet Count 270 10^3/UL Mean Platelet Volume 10.6 fl Immature Granulocytes % 0.300 % Neutrophils % 53.9 % Lymphocytes % 36.8 % Monocytes % 4.7 % Eosinophils % 3.6 % Basophils % 0.7 % Nucleated Red Blood Cells % 0.0 /100WBC Immature Granulocytes # 0.020 10^3/ul Neutrophils # 4.0 10^3/ul Lymphocytes # 2.8 10^3/ul Monocytes # 0.4 10^3/ul Eosinophils # 0.3 10^3/ul Basophils # 0.1 10^3/ul Nucleated Red Blood Cells # 0.0 10^3/ul Prothrombin Time Pending Prothrombin Time Ratio 1.5 INR International Normalized Ratio 1.55 Activated Partial Thromboplast Time 37.0 Sec Sodium Level 141 mmol/L Potassium Level 4.1 mmol/L Chloride Level 110 mmol/L Carbon Dioxide Level 24 mmol/L Anion Gap 7 Blood Urea Nitrogen 18 mg/dl Creatinine 1.08 mg/dl Est Glomerular Filtrat Rate mL/min > 60 mL/min Glucose Level 160 mg/dl Calcium Level 8.9 mg/dl Total Bilirubin 0.7 mg/dl Direct Bilirubin 0.00 mg/dl Indirect Bilirubin 0.7 mg/dl Aspartate Amino Transf (AST/SGOT) 22 IU/L Alanine Aminotransferase (ALT/SGPT) 24 IU/L Alkaline Phosphatase 123 IU/L Troponin I 0.178 ng/ml Total Protein 6.7 g/dl Albumin 3.9 g/dl Globulin 2.80 g/dl Albumin/Globulin Ratio 1.39 Current Medications Medications Dose Sig/Beverly Start Time Status Last (Trade) Ordered Route PRN Stop Time Admin Dose Reason Admin Diltiazem 25 mg STK-MED 01/22/19 DC HCl ONCE .ROUTE 11:35 (Cardizem Iv) 01/22/19 11:36 Diltiazem 5 mg ONCE ONCE 01/22/19 DC 01/22/19 HCl IV 12:00 12:11 (Cardizem Iv) 01/22/19 12:01 Sodium 500 ml @ Q1H ONCE 01/22/19 01/22/19 Chloride 500 mls/hr IV 12:00 12:19 01/22/19 12:59 Diltiazem 5 mg ONCE ONCE 01/22/19 DC 01/22/19 HCl IV 12:00 12:19 (Cardizem Iv) 01/22/19 12:01 Digoxin 250 mcg ONCE ONCE 01/22/19 DC (Digoxin) IV 12:00 01/22/19 12:01 Aspirin 325 mg ONCE ONCE 01/22/19 (Aspirin) PO 12:30 01/22/19 12:31 Procedures/MDM Patient was taken to a room, seen and evaluated. Comfort measures were initiated. Diagnostic tests were ordered and reviewed. 3 LEAD RHYTHM STRIP: Atrial fibrillation with rapid ventricular response, this improved with IV medication EK lead EKG reviewed by myself: Atrial fibrillation with rapid ventricular response at 159 bpm Normal [place] and intervals ST depressions in the inferolateral leads without ST elevation, Impression: Impression: A. fib with rapid ventricular response with lateral ischemic changes. Repeat EK lead EKG reviewed by myself: Atrial fibrillation with rapid ventricular response at 159 bpm Normal [place] and intervals ST depressions in the inferolateral leads without ST elevation, Impression: Impression: A. fib with rapid ventricular response with lateral ischemic changes., No significant interval change from initial EKG RADIOLOGY: Reviewed with the radiologist CONSULTATION: Hospitalist was notified for admission I placed a phone call to the patient's cardiology group REEVALUATION: 1225: Diagnostic tests were appreciated including the elevated troponin. Patient appeared to be much more comfortable and stable as his heart rate improved with the IV medication. MEDICAL DECISION MAKIN-year-old male presents the emergency department with atrial fibrillation with what appears to be demand ischemia. He has had a nice response to IV Cardizem. His initial troponin is slightly elevated. He will require admission to the hospital for further diagnostic observation of the elevated troponin to evaluate for possible an NSTEMI versus demand ischemia as well as for further observation of his heart rate. CRITICAL CARE: Time:>35 minutes Patient has a significant chance of clinical deterioration Treatments/Evaluations: Close monitoring and treatment of unstable vital signs, cardiorespiratory, and neurologic status, while maintaining tight balance of fluid, respiratory, and cardiac interventions. Departure Diagnosis: Primary Impression: Atrial fibrillation with RVR Additional Impression: Non-ST elevation [place] (NSTEMI) Condition: Fair MOOKIE GUZMAN January 22, 2019 12:27
[2019-01-22] MEDS ORDERED: ONDANSETRON 4 MG INJ IV PRN ×2 (12:30→14:30)
[2019-01-22] MEDS ORDERED: ACETAMINOPHEN 325 MG TAB PO PRN ×2 (12:30→14:30)
[2019-01-22] MEDS ORDERED: ASPIRIN 325 MG TAB PO ONE (12:30)
[2019-01-22] MEDS ORDERED: DILTIAZEM 25 MG INJ IV PRN (14:00)
--- NOTE | 2019-01-22 14:20 | HP ---
Date/Time of Note Date/Time of Note DATE: 01/22/19 TIME: 14:19 Assessment/Plan VTE Prophylaxis SCD applied (from Nsg): Yes Pharmacological prophylaxis: warfarin tx Lines/Catheters IV Catheter Type (from Nrsg): Saline Lock Assessment/Plan Hospital Course SUBJECTIVE: In bed, having mild chest discomfort. Denies shortness of breath, dizziness. Palpitation OBJECTIVE: Vital signs-see below PHYSICAL EXAM: Constitutional: Adequately built,not in acute distress. HEENT: Head atraumatic and normocephalic. Eyes: Extraocular muscles intact. Anicteric sclerae. Pupils equal bilaterally, reactive to light. NECK: Supple without lymph node. CHEST: Clear and good breath sounds equally. No wheezing. No rhonchi. HEART: Irregular rate and rhythm. ABDOMEN: Soft/non tender with no rebound tenderness. Bowel sounds were present. EXTREMITIES: No cyanosis, clubbing or edema. NEUROLOGIC: Alert and oriented x3. No focal deficit. No sensory deficit. PSYCHOSOCIAL: No signs of depression. INTEGUMENTARY: No open wounds. ASSESSMENT AND PLAN:68 yo M w/afib/atc Coumadin, hld,bladder cancer, here with palpitation and chest discomfort, found to have A. fib with RVR. A-Fib with RVR -Currently in controlled rate. Status post IV digoxin/Cardizem push in ER -Appreciate cardiology recommendation and patient is now switched to p.o. Cardizem. -Resume anticoagulation with Coumadin NSTEMI -Serial cardaic markers -ASA/PRN Nitro -Follow card recs Subtherapeutic INR -10mg Coumadinx1 today -Addition of Lovenox until INR improves -daily INR Hx renal cell carcinoma -Worked up prior and refused surgery Depression -resume home meds DVT ppx:Coumadin Rest of the management depend on hospital course Patient was seen in collaboration with Result Diagram: 01/22/19 1130 01/22/19 1130 Results 24hrs Laboratory Tests Test 01/22/19 11:30 White Blood Count 7.5 Red Blood Count 5.09 # Hemoglobin 14.3 # Hematocrit 43.9 # Mean Corpuscular Volume 86.2 Mean Corpuscular Hemoglobin 28.1 L Mean Corpuscular Hemoglobin Concent 32.6 Red Cell Distribution Width 13.6 Platelet Count 270 Mean Platelet Volume 10.6 H Immature Granulocytes % 0.300 Neutrophils % 53.9 Lymphocytes % 36.8 Monocytes % 4.7 Eosinophils % 3.6 Basophils % 0.7 Nucleated Red Blood Cells % 0.0 Immature Granulocytes # 0.020 Neutrophils # 4.0 Lymphocytes # 2.8 Monocytes # 0.4 Eosinophils # 0.3 Basophils # 0.1 Nucleated Red Blood Cells # 0.0 Prothrombin Time 18.7 #H Prothrombin Time Ratio 1.5 INR International Normalized Ratio 1.55 Activated Partial Thromboplast Time 37.0 H Sodium Level 141 Potassium Level 4.1 Chloride Level 110 Carbon Dioxide Level 24 Anion Gap 7 Blood Urea Nitrogen 18 Creatinine 1.08 Est Glomerular Filtrat Rate mL/min > 60 Glucose Level 160 Calcium Level 8.9 Total Bilirubin 0.7 Direct Bilirubin 0.00 Indirect Bilirubin 0.7 Aspartate Amino Transf (AST/SGOT) 22 Alanine Aminotransferase (ALT/SGPT) 24 Alkaline Phosphatase 123 H Troponin I 0.178 *H Total Protein 6.7 Albumin 3.9 Globulin 2.80 Albumin/Globulin Ratio 1.39 HPI/ROS Admit Date/Time Admit Date/Time Hx of Present Illness This is a 68-year-old male with a history of bladder cancer, atrial fibrillation, pacemaker placed, presented to the emergency room with palpitation, substernal chest discomfort, weakness started yesterday. Patient denied fever, chills, cough, loss of consciousness, dizziness, headache, numbness, tingling, diaphoresis, or other constitutional symptoms. 12 Lead EKG showed atrial fibrillation with rapid ventricular response at 159. Labs with troponin 0 0.178. Coag studies showed INR 1.55. Stable x-ray. Patient was given 250 mcg IV digoxin, 5 mg Cardizem IV push with rate control. ROS A 12 point review of system was assessed and is negative other than what is mentioned in the HPI. PMH/Family/Social Past Medical History See HPI Medications Current Medications Ondansetron HCl (Zofran Inj) 4 mg ER BRIDGE PRN IV NAUSEA/VOMITING; Start 01/22/19 at 12:30; Stop 01/23/19 at 12:29 Acetaminophen (Tylenol Tab) 650 mg ER BRIDGE PRN PO .MILD PAIN 1-3 OR TEMP; Start 01/22/19 at 12:30; Stop 01/23/19 at 12:29 Diltiazem HCl (Cardizem) 30 mg Q8 PO Last administered on 01/22/19at 11:55; Admin Dose 30 MG; Start 01/22/19 at 14:00 Diltiazem HCl (Cardizem Iv) 5 mg Q4 PRN IV HR>110 Hold SBP<100; Start 01/22/19 at 14:00 Alprazolam (Xanax) 0.5 mg BID PRN PO ANXIETY; Start 01/22/19 at 14:30 Aspirin (Halfprin) 81 mg DAILY PO ; Start 01/23/19 at 09:00 Atorvastatin Calcium (Lipitor) 20 mg QHS PO ; Start 01/22/19 at 21:00 Paroxetine HCl (Paxil) 40 mg HS PO ; Start 01/22/19 at 21:00 Coded Allergies: atenolol (Verified Allergy, Mild, SOB, 01/22/19) PT STATED "FEEL LIKE CHOKING" metoprolol (Verified Allergy, Mild, SOB, 01/22/19) PT STATED "FEEL LIKE CHOKING" ticagrelor (Verified Allergy, Mild, SOB, 01/22/19) PT STATED "FEEL LIKE CHOKING' Past Surgical History See HPI Past Surgical Hx: other Family History Significant Family History: heart disease, hypertension Social History Current everyday smoking. Smoking Status: Current some day smoker Exam/Review of Systems Vital Signs Vitals Vital Signs Date Temp Pulse Resp B/P (MAP) Pulse Ox O2 O2 Flow FiO2 Time Delivery Rate 01/22/19 87 14 94/68 (77) 99 Nasal 2.0 12:20 Cannula 01/22/19 98.3 11:06 LAMBERT GANDHI NP January 22, 2019 14:20
[2019-01-22] MEDS ORDERED: morphine 2 MG INJ IV PRN (14:30)
[2019-01-22] MEDS ORDERED: NACL 0.9% 3 ML SYG IV SCH (14:30)
[2019-01-22] MEDS ORDERED: NITROGLYCERIN (SL) 0.4 MG TAB SL PRN (14:30)
[2019-01-22] MEDS ORDERED: WARFARIN 10 MG TAB PO ONE (17:00)
--- NOTE | 2019-01-22 18:49 | CONS ---
DATE OF ADMISSION: 01/22/2019 DATE OF CONSULTATION: 01/22/2019 REASON FOR CONSULTATION: Atrial fibrillation with rapid ventricular response, positive troponin. REQUESTING PHYSICIAN: Dr. Guzman from the Emergency Department. HISTORY OF PRESENT ILLNESS: Mr. 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 History of recent hematuria wh o presents with complaints of 1 day of palpitations, generalized weakness, some mild chest pain. The patient subsequently presented to [facility] Emergency Department where upon arriv al, temperature was 98.3, blood pressure 118/62, pulse 159. Atrial fibrillation, rate 20, sat 99%. The patient's labs showed white count 7.5, hemoglobin 14.3, platelet count 270. Sodium 141, potassiu m 4.1, creatinine 1.0, BUN 18, AST 22, ALT 24. Troponin 0.178. INR of 1.55. The patient underwent a chest x-ray revealing no radiographic evidence of acute cardiopulmonary abnormalities. The patient 's electrocardiogram revealed atrial fibrillation, rate of 159 with a normal axis and inferior and la teral ST depressions with tachycardia. The patient thus far has been treated with a dose of aspirin, diltiazem 5 mg IV push, Digoxin 250 mg IV push x1 and IV fluid hydration with overall improvement in heart rates now in the 80s and 90s. PAST MEDICAL HISTORY: As above in HPI. MEDICATIONS CURRENTLY IN HOSPITAL: Pending. MEDICATIONS PRIOR TO ADMIT: 1. Coumadin. 2. Atorvastatin. 3. Aspirin 81 mg daily. 4. Paxil 40 mg at bedtime. ALLERGIES: 1. ATENOLOL. 2. METOPROLOL. 3. BRILINTA. SOCIAL HISTORY: No current tobacco, EtOH or illicit drug use. FAMILY HISTORY: No history of sudden cardiac or early CAD. REVIEW OF SYSTEMS: As above in HPI. CONSTITUTIONAL: No fevers, chills. PULMONARY: No current shortness of breath. CARDIOVASCULAR: Intermittent chest pain. GASTROINTESTINAL: No vomiting. GENITOURINARY: No hematuria. MUSCULOSKELETAL: Degenerative joint disease. PSYCHIATRIC: The patient has depression. NEUROLOGIC: No documented history of CVA. ENDOCRINE: No documented diabetes mellitus. PHYSICAL EXAMINATION: VITAL SIGNS: Temperature of 98.3, blood pressure most recently 94/68, pulse 87 and rate 14, sat 99% on 2 liters. GENERAL: The patient is alert, awake, in no acute distress at this time. NECK: JVP approximately 8 cm of water. CHEST: Fair air movement throughout. HEART: Irregularly irregular, I/ systolic murmur, nondisplaced PMI. ABDOMEN: Positive bowel sounds, soft. EXTREMITIES: No significant pitting edema, 1+ pulses bilateral posterior tibial. LABORATORY DATA: Most recently from today, sodium 140, potassium 4.1, creatinine 1.0, BUN 18. Tropo srinivasan 0.178. Alkaline phosphatase 123, AST 22, ALT 24, albumin 3.9. White blood count 7.5 and hemoglo bin 40.3, platelet count 270. IMAGING STUDIES: Chest x-ray revealing no radiographic evidence of acute cardiopulmonary abnormaliti es. ECG: As above in HPI. No further electrocardiograms for my review at this time. IMPRESSION: 1. Atrial fibrillation with rapid ventricular response. 2. Positive troponin in the setting of rapid AFib, likely type 2 demand infarct. 3. Electrocardiogram with ST depressions with tachycardia. 4. 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 5. History of prior ST elevation myocardial infarction in 2011. 6. Chest pain, likely secondary to palpitations and rapid AFib. 7. Dizziness. 8. Subtherapeutic INR. RECOMMENDATIONS: 1. At this time, would admit patient to telemetry monitoring to follow rhythm and rate control close ly. 2. Will start patient on standing diltiazem in order to assure improve heart rate control as tolerat ed. 3. We will continue the patient's Coumadin and up titrate as necessary in order to get the patient b ack to a therapeutic level. 4. Continue to trend the patient's cardiac enzymes, assess for any significant ongoing cardiac damag e with improved rate control. 5. Patient is status post 2D echo 10/2018 during his last admission, showing a preserved EF. 6. Check a TSH to be sure subclinical hyperthyroidism is not contributing to bouts of tachyarrhythmi a. Thank you for allowing me to take part in the care of this patient. I will continue to follow very c losely with you with recommendations to be made as the patient progresses through his inpatient hospi marc clinical course. Dictated By: MALI NOONAN/ZAKI Conf#: [id number] DID#: [id number] CC: MOOKIE GUZMAN;*EndCC*
[2019-01-22 20:10] VITALS: Ht 170.2 cm; Wt 115.2 kg
[2019-01-22 20:42] VITALS: PULSE 128
[2019-01-22 20:43] VITALS: BP 134/95; PULSE 126; RESP 18
[2019-01-22] MEDS: PAROXETINE 20 MG TAB PO SCH (23:17)
[2019-01-22] MEDS: ATORVASTATIN 20 MG TAB PO SCH (23:17)
[2019-01-22] MEDS: ENOXAPARIN 80 MG/0.8 ML SYG SC SCH (23:22)
[2019-01-22] MEDS: ALPRAZOLAM 0.5 MG TAB PO PRN (23:23)
[2019-01-22 23:30] VITALS: BP 131/59; PULSE 80; RESP 19
[2019-01-23] VITALS (11 sets, daily range): BP systolic 103–143; BP diastolic 64–95; PULSE 75–141; RESP 17–20
[2019-01-23] MEDS: DILTIAZEM 30 MG TAB PO SCH ×4 (06:17→21:10)
[2019-01-23] MEDS: ASPIRIN (EC) 81 MG TAB PO SCH (08:13)
[2019-01-23] MEDS: ALPRAZOLAM 0.5 MG TAB PO PRN ×2 (08:13→21:06)
[2019-01-23] MEDS: ENOXAPARIN 80 MG/0.8 ML SYG SC SCH ×2 (08:13→20:58)
[2019-01-23] MEDS: DIGOXIN 500 MCG INJ IV SCH ×2 (14:14→17:17)
--- NOTE | 2019-01-23 14:19 | CONS ---
Assessment/Plan Assessment/Plan Hospital Course (Demo Recall) IMPRESSION: 1. Atrial fibrillation with rapid ventricular response-slowly improving on oral medicatuions 2. Positive troponin in the setting of rapid AFib, likely type 2 demand infarct. 3. Electrocardiogram with ST depressions with tachycardia. 4. 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 5. History of prior ST elevation myocardial infarction in 2011. 6. Chest pain, likely secondary to palpitations and rapid AFib. 7. Dizziness. 8. Subtherapeutic INR. Recc: -Tele -serial ecg's -continue diltiazem as tolerated -Contineu lovenox -will start amio -Will give digoxin IVP and f/u HR -continue coumadin loading and follow-up INR -Rx anxiety Consultation Date/Type/Reason Admit Date/Time January 22, 2019 at 12:27 Initial Consult Date 01/22/19 Type of Consult Cardiology Reason for Consultation AF Requesting Provider: SAMIR FISHER Date/Time of Note DATE: 01/23/19 TIME: 14:14 Exam/Review of Systems Vital Signs Vitals Vital Signs Date Temp Pulse Resp B/P (MAP) Pulse Ox O2 O2 Flow FiO2 Time Delivery Rate 01/23/19 103 12:04 01/23/19 98.0 20 103/64 95 11:13 (77) 01/22/19 Nasal 19:16 Cannula 01/22/19 2.0 17:49 Intake and Output 01/22/19 01/22/19 01/23/19 1515:00 23:00 07:00 IntakeIntake Total 500 ml BalanceBalance 500 ml Exam Exam Review of Systems: CONSTITUTIONAL: No fevers, chills. PULMONARY: No sob CARDIOVASCULAR: No chest pain/palpitations GASTROINTESTINAL: No nausea/vomiting. GENITOURINARY: No hematuria/dysuria. MUSCULOSKELETAL: No myagias/arthalgias. PSYCHIATRIC: The patient denies depression. NEUROLOGIC: No weakness Constitutional: alert Psych: no complaints Head: normocephalic ENMT: mucosa pink and moist Neck: supple, jvd (9 cm water) Respiratory: clear to auscultation Cardiovascular: irregular rhythm (tachycardic) Gastrointestinal: soft, non-tender Musculoskeletal: muscle tone (normal) Extremities: edema (none) Neurological: other (No focal deficits) Labs Result Diagram: 01/23/19 0453 01/23/19 0453 Results 24hrs Laboratory Tests Test 01/22/19 18:22 01/22/19 23:16 01/23/19 04:50 01/23/19 04:53 Creatine Kinase 49 51 Creatine Kinase 3.6 3.2 Index Creatinine Kinase MB 1.76 1.64 (Mass) Troponin I 0.171 *H 0.146 *H Free Thyroxine 1.32 Free 3.79 Triiodothyronine (T3) pg/mL White Blood Count 7.0 Red Blood Count 4.90 Hemoglobin 13.7 L Hematocrit 42.7 Mean Corpuscular 87.1 Volume Mean Corpuscular 28.0 L Hemoglobin Mean Corpuscular 32.1 Hemoglobin Concent Red Cell 13.7 Distribution Width Platelet Count 218 Mean Platelet Volume 10.8 H Immature 0.300 Granulocytes % Neutrophils % 43.7 Lymphocytes % 43.9 Monocytes % 7.1 Eosinophils % 4.3 Basophils % 0.7 Nucleated Red Blood 0.0 Cells % Immature 0.020 Granulocytes # Neutrophils # 3.1 Lymphocytes # 3.1 H Monocytes # 0.5 Eosinophils # 0.3 Basophils # 0.1 Nucleated Red Blood 0.0 Cells # Prothrombin Time 18.8 H Prothrombin Time 1.5 Ratio INR International 1.56 Normalized Ratio Sodium Level 140 Potassium Level 4.4 Chloride Level 109 Carbon Dioxide Level 26 Anion Gap 5 Blood Urea Nitrogen 19 Creatinine 0.94 Est Glomerular > 60 Filtrat Rate mL/min Glucose Level 101 # Hemoglobin A1c 5.4 Calcium Level 8.7 Phosphorus Level 2.8 Total Bilirubin 0.7 Direct Bilirubin 0.00 Indirect Bilirubin 0.7 Aspartate Amino 22 Transf (AST/SGOT) Alanine 24 Aminotransferase (AL T/SGPT) Alkaline Phosphatase 111 Total Protein 6.2 Albumin 3.6 Globulin 2.60 Albumin/Globulin 1.38 Ratio Triglycerides Level 112 Cholesterol Level 160 LDL Cholesterol, 107 Calculated HDL Cholesterol 31 Cholesterol/HDL 5.1 Ratio Medications Medications Current Medications Diltiazem HCl (Cardizem) 30 mg Q8 PO Last administered on 01/23/19at 06:17; Admin Dose 30 MG; Start 01/22/19 at 14:00 Diltiazem HCl (Cardizem Iv) 5 mg Q4 PRN IV HR>110 Hold SBP<100; Start 01/22/19 at 14:00 Alprazolam (Xanax) 0.5 mg BID PRN PO ANXIETY Last administered on 01/23/19 08:13; Admin Dose 0.5 MG; Start 01/22/19 at 14:30 Aspirin (Halfprin) 81 mg DAILY PO Last administered on 01/23/19 08:13; Admin Dose 81 MG; Start 01/23/19 at 09:00 Atorvastatin Calcium (Lipitor) 20 mg QHS PO Last administered on 01/22/19 23:17; Admin Dose 20 MG; Start 01/22/19 at 21:00 Paroxetine HCl (Paxil) 40 mg HS PO Last administered on 01/22/19 23:17; Admin Dose 40 MG; Start 01/22/19 at 21:00 IV Flush (NS 3 ml) 3 ml PER PROTOCOL IV ; Start 01/22/19 at 14:30 Ondansetron HCl (Zofran Inj) 4 mg Q6H PRN IV NAUSEA/VOMITING; Start 01/22/19 at 14:30 Acetaminophen (Tylenol Tab) 650 mg Q6H PRN PO .PAIN 1-3 OR TEMP; Start 01/22/19 at 14:30 Morphine Sulfate (morphine) 2 mg Q4H PRN IV .SEVERE PAIN 7-10; Start 01/22/19 at 14:30 Nitroglycerin (Nitroglycerin (Sl Tab) 0.4 Mg) 1 tab Q5M PRN SL ANGINA; Start 01/22/19 at 14:30 Enoxaparin Sodium (Lovenox) 80 mg Q12 SC Last administered on 01/23/19 08:13; Admin Dose 80 MG; Start 01/22/19 at 21:00 Amiodarone HCl (Cordarone) 200 mg TID PO ; Start 01/23/19 at 21:00 Digoxin (Digoxin) 250 mcg Q6 IV ; Start 01/23/19 at 13:30; Stop 01/24/19 at 00:01 MALI LILLY January 23, 2019 14:19
[2019-01-23] MEDS ORDERED: AMIODARONE 150MG/D5W BOLUS 100 ML IV ONE (17:30)
[2019-01-23] MEDS ORDERED: AMIODARONE 900 MG in DEXTROSE 5% 482 ML IV SCH (17:30)
--- NOTE | 2019-01-23 20:25 | RADRPT ---
Vent Rate: 119 bpm RR Interval: 506 msec VA Interval: [id number] msec QRS Duration: 94 msec QT Interval: 330 msec QTC Interval: 464 msec P-R-T [place]: [id number] - 26 - 55 degrees Atrial fibrillation...V-rate 89-152, irreg A-activity Borderline repol abnormality, diffuse leads...ST dep, T flat/neg, ant/lat/inf Electronically Signed By: Evans Ba
[2019-01-23] MEDS: PAROXETINE 20 MG TAB PO SCH (20:56)
[2019-01-23] MEDS: ATORVASTATIN 20 MG TAB PO SCH (20:56)
--- NOTE | 2019-01-23 20:56 | PN ---
Date/Time of Note Date/Time of Note DATE: 01/23/19 Assessment/Plan VTE Prophylaxis Risk score (from [facility] [place])>0 risk: 3 SCD applied (from [facility] [place]): Yes Pharmacological prophylaxis: LMWH (bridging to warfarin) Lines/Catheters IV C[facility]ter Type (from [facility] Saline Lock Assessment/Plan Hospital Course Assessment/Plan: 1. A-Fib with RVR -Remains on lovenox and bridging to coumadin - on amiodarone, digoxin, diltiazem - Improving 2. NSTEMI - ischemic demand - continue ASA, statin 3. Subtherapeutic INR - Continue lovenox, bridge to coumadin 4. Hx renal cell carcinoma -Worked up prior and refused surgery - Patient for outpatient management 5. Depression - Continue Paxil DISPO/PLAN: Case management to follow to set up coumadin clinic.Monitor on tele and await improvement. Discussed POC with Result Diagram: 01/23/19 0453 01/23/19 0453 Results 24hrs Laboratory Tests Test 01/22/19 23:16 01/23/19 04:50 01/23/19 04:53 Creatine Kinase 51 Creatine Kinase Index 3.2 Creatinine Kinase MB (Mass) 1.64 Troponin I 0.146 *H Free Thyroxine 1.32 Free Triiodothyronine (T3) pg/mL 3.79 White Blood Count 7.0 Red Blood Count 4.90 Hemoglobin 13.7 L Hematocrit 42.7 Mean Corpuscular Volume 87.1 Mean Corpuscular Hemoglobin 28.0 L Mean Corpuscular Hemoglobin Concent 32.1 Red Cell Distribution Width 13.7 Platelet Count 218 Mean Platelet Volume 10.8 H Immature Granulocytes % 0.300 Neutrophils % 43.7 Lymphocytes % 43.9 Monocytes % 7.1 Eosinophils % 4.3 Basophils % 0.7 Nucleated Red Blood Cells % 0.0 Immature Granulocytes # 0.020 Neutrophils # 3.1 Lymphocytes # 3.1 H Monocytes # 0.5 Eosinophils # 0.3 Basophils # 0.1 Nucleated Red Blood Cells # 0.0 Prothrombin Time 18.8 H Prothrombin Time Ratio 1.5 INR International Normalized Ratio 1.56 Sodium Level 140 Potassium Level 4.4 Chloride Level 109 Carbon Dioxide Level 26 Anion Gap 5 Blood Urea Nitrogen 19 Creatinine 0.94 Est Glomerular Filtrat Rate mL/min > 60 Glucose Level 101 # Hemoglobin A1c 5.4 Calcium Level 8.7 Phosphorus Level 2.8 Total Bilirubin 0.7 Direct Bilirubin 0.00 Indirect Bilirubin 0.7 Aspartate Amino Transf (AST/SGOT) 22 Alanine Aminotransferase (ALT/SGPT) 24 Alkaline Phosphatase 111 Total Protein 6.2 Albumin 3.6 Globulin 2.60 Albumin/Globulin Ratio 1.38 Triglycerides Level 112 Cholesterol Level 160 LDL Cholesterol, Calculated 107 HDL Cholesterol 31 Cholesterol/HDL Ratio 5.1 Subjective 24 Hr Interval Summary Free Text/Dictation no s/s of distress. 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, nl mental status, nl speech Results Results 24hrs Laboratory Tests Test 01/22/19 23:16 01/23/19 04:50 01/23/19 04:53 Creatine Kinase 51 Creatine Kinase Index 3.2 Creatinine Kinase MB (Mass) 1.64 Troponin I 0.146 *H Free Thyroxine 1.32 Free Triiodothyronine (T3) pg/mL 3.79 White Blood Count 7.0 Red Blood Count 4.90 Hemoglobin 13.7 L Hematocrit 42.7 Mean Corpuscular Volume 87.1 Mean Corpuscular Hemoglobin 28.0 L Mean Corpuscular Hemoglobin Concent 32.1 Red Cell Distribution Width 13.7 Platelet Count 218 Mean Platelet Volume 10.8 H Immature Granulocytes % 0.300 Neutrophils % 43.7 Lymphocytes % 43.9 Monocytes % 7.1 Eosinophils % 4.3 Basophils % 0.7 Nucleated Red Blood Cells % 0.0 Immature Granulocytes # 0.020 Neutrophils # 3.1 Lymphocytes # 3.1 H Monocytes # 0.5 Eosinophils # 0.3 Basophils # 0.1 Nucleated Red Blood Cells # 0.0 Prothrombin Time 18.8 H Prothrombin Time Ratio 1.5 INR International Normalized Ratio 1.56 Sodium Level 140 Potassium Level 4.4 Chloride Level 109 Carbon Dioxide Level 26 Anion Gap 5 Blood Urea Nitrogen 19 Creatinine 0.94 Est Glomerular Filtrat Rate mL/min > 60 Glucose Level 101 # Hemoglobin A1c 5.4 Calcium Level 8.7 Phosphorus Level 2.8 Total Bilirubin 0.7 Direct Bilirubin 0.00 Indirect Bilirubin 0.7 Aspartate Amino Transf (AST/SGOT) 22 Alanine Aminotransferase (ALT/SGPT) 24 Alkaline Phosphatase 111 Total Protein 6.2 Albumin 3.6 Globulin 2.60 Albumin/Globulin Ratio 1.38 Triglycerides Level 112 Cholesterol Level 160 LDL Cholesterol, Calculated 107 HDL Cholesterol 31 Cholesterol/HDL Ratio 5.1 Medications Medication Current Medications Diltiazem HCl (Cardizem) 30 mg Q8 PO Last administered on 01/23/19at 06:17; Admin Dose 30 MG; Start 01/22/19 at 14:00 Diltiazem HCl (Cardizem Iv) 5 mg Q4 PRN IV HR>110 Hold SBP<100; Start 01/22/19 at 14:00 Alprazolam (Xanax) 0.5 mg BID PRN PO ANXIETY Last administered on 01/23/19at 08:13; Admin Dose 0.5 MG; Start 01/22/19 at 14:30 Aspirin (Halfprin) 81 mg DAILY PO Last administered on 01/23/19at 08:13; Admin Dose 81 MG; Start 01/23/19 at 09:00 Atorvastatin Calcium (Lipitor) 20 mg QHS PO Last administered on 01/22/19at 23:17; Admin Dose 20 MG; Start 01/22/19 at 21:00 Paroxetine HCl (Paxil) 40 mg HS PO Last administered on 01/22/19 23:17; Admin Dose 40 MG; Start 01/22/19 at 21:00 IV Flush (NS 3 ml) 3 ml PER PROTOCOL IV ; Start 01/22/19 at 14:30 Ondansetron HCl (Zofran Inj) 4 mg Q6H PRN IV NAUSEA/VOMITING; Start 01/22/19 at 14:30 Acetaminophen (Tylenol Tab) 650 mg Q6H PRN PO .PAIN 1-3 OR TEMP; Start 01/22/19 at 14:30 Morphine Sulfate (morphine) 2 mg Q4H PRN IV .SEVERE PAIN 7-10; Start 01/22/19 at 14:30 Nitroglycerin (Nitroglycerin (Sl Tab) 0.4 Mg) 1 tab Q5M PRN SL ANGINA; Start 01/22/19 at 14:30 Enoxaparin Sodium (Lovenox) 80 mg Q12 SC Last administered on 01/23/19at 08:13; Admin Dose 80 MG; Start 01/22/19 at 21:00 Digoxin (Digoxin) 250 mcg Q6 IV Last administered on 01/23/19at 17:17; Admin Dose 250 MCG; Start 01/23/19 at 13:30; Stop 01/24/19 at 00:01 Amiodarone HCl 900 mg/Dextrose 500 ml @ 0 mls/hr Q0M IV Last administered on 01/23/19at 18:13; Admin Dose 33.3 MLS/HR; Start 01/23/19 at 17:30; Stop 01/24/19 at 17:29 LORI NAILS NP January 23, 2019 20:56
[2019-01-23] MEDS ORDERED: AMIODARONE 200 MG TAB PO SCH (21:00)
[2019-01-23] MEDS: WARFARIN 5 MG TAB PO ONE ×2 (21:05→21:11)
[2019-01-24] VITALS (13 sets, daily range): BP systolic 126–137; BP diastolic 78–87; PULSE 54–154; RESP 18–20
[2019-01-24] MEDS: DIGOXIN 500 MCG INJ IV SCH (00:37)
[2019-01-24] MEDS: DILTIAZEM 30 MG TAB PO SCH ×2 (06:00→20:39)
[2019-01-24] MEDS: ASPIRIN (EC) 81 MG TAB PO SCH (08:35)
[2019-01-24] MEDS: ENOXAPARIN 80 MG/0.8 ML SYG SC SCH ×2 (08:39→20:46)
--- NOTE | 2019-01-24 12:47 | PN ---
Date/Time of Note Date/Time of Note DATE: 01/24/19 TIME: 12:41 Assessment/Plan VTE Prophylaxis Risk score (from [facility])>0 risk: 4 SCD applied (from [facility]): Yes Pharmacological prophylaxis: LMWH Lines/Catheters IV Catheter Type (from [facility]): Saline Lock Assessment/Plan Hospital Course Assessment/Plan: 1. A-Fib with RVR -Remains on lovenox and bridging to coumadin - will give 5mg today - on amiodarone, digoxin, diltiazem 2. NSTEMI - ischemic demand - continue ASA, statin 3. Subtherapeutic INR - Continue lovenox, bridge to coumadin 4. Hx renal cell carcinoma -Worked up prior and refused surgery - Patient for outpatient management 5. Depression - Continue Paxil DISPO/PLAN: Heart rate reportedly elevated on exertion. Remains on amiodarone drip during interview. Follow-up with campaign analyst recommendations. Discharge when medically stable. Discussed POC with Result Diagram: 01/24/1951801/24/1919 Results 24hrs Laboratory Tests Test 01/24/19 05:19 01/24/19 05:20 White Blood Count 6.8 Red Blood Count 4.97 Hemoglobin 14.1 Hematocrit 42.0 Mean Corpuscular Volume 84.5 Mean Corpuscular Hemoglobin 28.4 L Mean Corpuscular Hemoglobin Concent 33.6 Red Cell Distribution Width 13.3 Platelet Count 192 Mean Platelet Volume 10.9 H Immature Granulocytes % 0.100 Neutrophils % 51.7 Lymphocytes % 37.0 Monocytes % 6.5 Eosinophils % 3.8 Basophils % 0.9 Nucleated Red Blood Cells % 0.0 Immature Granulocytes # 0.010 Neutrophils # 3.5 Lymphocytes # 2.5 Monocytes # 0.4 Eosinophils # 0.3 Basophils # 0.1 Nucleated Red Blood Cells # 0.0 Sodium Level 140 Potassium Level 4.0 Chloride Level 109 Carbon Dioxide Level 24 Anion Gap 7 Blood Urea Nitrogen 16 Creatinine 0.93 Est Glomerular Filtrat Rate mL/min > 60 Glucose Level 95 Calcium Level 8.8 Prothrombin Time 20.9 H Prothrombin Time Ratio 1.6 INR International Normalized Ratio 1.79 Subjective 24 Hr Interval Summary Free Text/Dictation Posterior chest pain. Still with labile heart rate more notable on exertion. 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, nl mental status, nl speech Results Results 24hrs Laboratory Tests Test 01/24/19 05:19 01/24/19 05:20 White Blood Count 6.8 Red Blood Count 4.97 Hemoglobin 14.1 Hematocrit 42.0 Mean Corpuscular Volume 84.5 Mean Corpuscular Hemoglobin 28.4 L Mean Corpuscular Hemoglobin Concent 33.6 Red Cell Distribution Width 13.3 Platelet Count 192 Mean Platelet Volume 10.9 H Immature Granulocytes % 0.100 Neutrophils % 51.7 Lymphocytes % 37.0 Monocytes % 6.5 Eosinophils % 3.8 Basophils % 0.9 Nucleated Red Blood Cells % 0.0 Immature Granulocytes # 0.010 Neutrophils # 3.5 Lymphocytes # 2.5 Monocytes # 0.4 Eosinophils # 0.3 Basophils # 0.1 Nucleated Red Blood Cells # 0.0 Sodium Level 140 Potassium Level 4.0 Chloride Level 109 Carbon Dioxide Level 24 Anion Gap 7 Blood Urea Nitrogen 16 Creatinine 0.93 Est Glomerular Filtrat Rate mL/min > 60 Glucose Level 95 Calcium Level 8.8 Prothrombin Time 20.9 H Prothrombin Time Ratio 1.6 INR International Normalized Ratio 1.79 Medications Medication Current Medications Diltiazem HCl (Cardizem) 30 mg Q8 PO Last administered on 01/23/19at 06:17; Admin Dose 30 MG; Start 01/22/19 at 14:00 Diltiazem HCl (Cardizem Iv) 5 mg Q4 PRN IV HR>110 Hold SBP<100; Start 01/22/19 at 14:00 Alprazolam (Xanax) 0.5 mg BID PRN PO ANXIETY Last administered on 01/23/19 21:06; Admin Dose 0.5 MG; Start 01/22/19 at 14:30 Aspirin (Halfprin) 81 mg DAILY PO Last administered on 01/24/19 08:35; Admin Dose 81 MG; Start 01/23/19 at 09:00 Atorvastatin Calcium (Lipitor) 20 mg QHS PO Last administered on 01/23/19 20:56; Admin Dose 20 MG; Start 01/22/19 at 21:00 Paroxetine HCl (Paxil) 40 mg HS PO Last administered on 01/23/19 20:56; Admin Dose 40 MG; Start 01/22/19 at 21:00 IV Flush (NS 3 ml) 3 ml PER PROTOCOL IV ; Start 01/22/19 at 14:30 Ondansetron HCl (Zofran Inj) 4 mg Q6H PRN IV NAUSEA/VOMITING; Start 01/22/19 at 14:30 Acetaminophen (Tylenol Tab) 650 mg Q6H PRN PO .PAIN 1-3 OR TEMP; Start 01/22/19 at 14:30 Morphine Sulfate (morphine) 2 mg Q4H PRN IV .SEVERE PAIN 7-10; Start 01/22/19 at 14:30 Nitroglycerin (Nitroglycerin (Sl Tab) 0.4 Mg) 1 tab Q5M PRN SL ANGINA; Start 01/22/19 at 14:30 Enoxaparin Sodium (Lovenox) 80 mg Q12 SC Last administered on 01/24/19at 08:39; Admin Dose 80 MG; Start 01/22/19 at 21:00 Amiodarone HCl 900 mg/Dextrose 500 ml @ 0 mls/hr Q0M IV Last administered on 01/23/19at 18:13; Admin Dose 33.3 MLS/HR; Start 01/23/19 at 17:30; Stop 01/24/19 at 17:29 LORI NAILS NP January 24, 2019 12:47
[2019-01-24] MEDS ORDERED: DIGOXIN 500 MCG INJ IV ONE (15:00)
[2019-01-24] MEDS ORDERED: DILTIAZEM 30 MG TAB PO ONE (15:00)
--- NOTE | 2019-01-24 15:07 | CONS ---
Assessment/Plan Assessment/Plan Hospital Course (Demo Recall) IMPRESSION: 1. Atrial fibrillation with rapid ventricular response-improved overall s/p IV digoxin loading 2. Positive troponin in the setting of rapid AFib, likely type 2 demand infarct. 3. Electrocardiogram with ST depressions with tachycardia. 4. 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 5. History of prior ST elevation myocardial infarction in 2011. 6. Chest pain, likely secondary to palpitations and rapid AFib. 7. Dizziness. 8. Subtherapeutic INR. Recc: -Tele -serial ecg's -continue diltiazem as patient will comply with -Contineu lovenox -Continue IV amio with transition to po amio in attempt to chemically cardiovert -Will give additional dose IVP digoxin -continue coumadin loading and follow-up INR -If remains in AF will schedule for [facility]ER[facility]/DCCV friday as posssible -Rx anxiety Consultation Date/Type/Reason Admit Date/Time January 22, 2019 at 12:27 Initial Consult Date 01/22/19 Type of Consult Cardiology Reason for Consultation AF Requesting Provider: SAMIR FISHER Date/Time of Note DATE: 01/24/19 TIME: 15:04 Exam/Review of Systems Vital Signs Vitals Vital Signs Date Temp Pulse Resp B/P (MAP) Pulse Ox O2 O2 Flow FiO2 Time Delivery Rate 01/24/19 119 12:06 01/24/19 97.8 20 126/87 97 10:59 (100) 01/22/19 Nasal 19:16 Cannula 01/22/19 2.0 17:49 Intake and Output 01/23/19 01/23/19 01/24/19 1515:00 23:00 07:00 IntakeIntake Total 1250 ml 483.3 ml BalanceBalance 1250 ml 483.3 ml Exam Exam Review of Systems: CONSTITUTIONAL: No fevers, chills. PULMONARY: No sob CARDIOVASCULAR: No chest pain/palpitations GASTROINTESTINAL: No nausea/vomiting. GENITOURINARY: No hematuria/dysuria. MUSCULOSKELETAL: No myagias/arthalgias. PSYCHIATRIC: The patient denies depression. NEUROLOGIC: No weakness Constitutional: alert Psych: no complaints ENMT: mucosa pink and moist Neck: supple, jvd (9 cm water) Respiratory: clear to auscultation Cardiovascular: irregular rhythm Gastrointestinal: soft, non-tender Musculoskeletal: muscle tone (normal) Extremities: edema (none) Neurological: other (No focal deficits) Labs Result Diagram: 01/24/1951801/24/19518 Results 24hrs Laboratory Tests Test 01/24/19 05:19 01/24/19 05:20 White Blood Count 6.8 Red Blood Count 4.97 Hemoglobin 14.1 Hematocrit 42.0 Mean Corpuscular Volume 84.5 Mean Corpuscular Hemoglobin 28.4 L Mean Corpuscular Hemoglobin Concent 33.6 Red Cell Distribution Width 13.3 Platelet Count 192 Mean Platelet Volume 10.9 H Immature Granulocytes % 0.100 Neutrophils % 51.7 Lymphocytes % 37.0 Monocytes % 6.5 Eosinophils % 3.8 Basophils % 0.9 Nucleated Red Blood Cells % 0.0 Immature Granulocytes # 0.010 Neutrophils # 3.5 Lymphocytes # 2.5 Monocytes # 0.4 Eosinophils # 0.3 Basophils # 0.1 Nucleated Red Blood Cells # 0.0 Sodium Level 140 Potassium Level 4.0 Chloride Level 109 Carbon Dioxide Level 24 Anion Gap 7 Blood Urea Nitrogen 16 Creatinine 0.93 Est Glomerular Filtrat Rate mL/min > 60 Glucose Level 95 Calcium Level 8.8 Prothrombin Time 20.9 H Prothrombin Time Ratio 1.6 INR International Normalized Ratio 1.79 Medications Medications Current Medications Diltiazem HCl (Cardizem Iv) 5 mg Q4 PRN IV HR>110 Hold SBP<100; Start 01/22/19 at 14:00 Alprazolam (Xanax) 0.5 mg BID PRN PO ANXIETY Last administered on 01/23/19at 21:06; Admin Dose 0.5 MG; Start 01/22/19 at 14:30 Aspirin (Halfprin) 81 mg DAILY PO Last administered on 01/24/19at 08:35; Admin Dose 81 MG; Start 01/23/19 at 09:00 Atorvastatin Calcium (Lipitor) 20 mg QHS PO Last administered on 01/23/19at 20:56; Admin Dose 20 MG; Start 01/22/19 at 21:00 Paroxetine HCl (Paxil) 40 mg HS PO Last administered on 01/23/19at 20:56; Admin Dose 40 MG; Start 01/22/19 at 21:00 IV Flush (NS 3 ml) 3 ml PER PROTOCOL IV ; Start 01/22/19 at 14:30 Ondansetron HCl (Zofran Inj) 4 mg Q6H PRN IV NAUSEA/VOMITING; Start 01/22/19 at 14:30 Acetaminophen (Tylenol Tab) 650 mg Q6H PRN PO .PAIN 1-3 OR TEMP; Start 01/22/19 at 14:30 Morphine Sulfate (morphine) 2 mg Q4H PRN IV .SEVERE PAIN 7-10; Start 01/22/19 at 14:30 Nitroglycerin (Nitroglycerin (Sl Tab) 0.4 Mg) 1 tab Q5M PRN SL ANGINA; Start 01/22/19 at 14:30 Enoxaparin Sodium (Lovenox) 80 mg Q12 SC Last administered on 01/24/19at 08:39; Admin Dose 80 MG; Start 01/22/19 at 21:00 Amiodarone HCl 900 mg/Dextrose 500 ml @ 0 mls/hr Q0M IV Last administered on 01/23/19at 18:13; Admin Dose 33.3 MLS/HR; Start 01/23/19 at 17:30; Stop 01/24/19 at 17:29 Warfarin Sodium (Coumadin) 5 mg ONCE@17 ONCE PO ; Start 01/24/19 at 17:00; Stop 01/24/19 at 17:01 Diltiazem HCl (Cardizem) 60 mg Q8 PO ; Start 01/24/19 at 22:00 Digoxin (Digoxin) 0.125 mg DAILY@13 PO ; Start 01/25/19 at 13:00 MALI LILLY January 24, 2019 15:07
[2019-01-24] MEDS ORDERED: WARFARIN 5 MG TAB PO ONE (17:00)
[2019-01-24] MEDS: ATORVASTATIN 20 MG TAB PO SCH (20:38)
[2019-01-24] MEDS: AMIODARONE 200 MG TAB PO SCH (20:38)
[2019-01-24] MEDS: PAROXETINE 20 MG TAB PO SCH (20:42)
[2019-01-24] MEDS: ALPRAZOLAM 0.5 MG TAB PO PRN (23:56)
[2019-01-25] VITALS (13 sets, daily range): BP systolic 107–132; BP diastolic 72–93; PULSE 68–95; RESP 18
[2019-01-25] MEDS: DILTIAZEM 30 MG TAB PO SCH ×3 (06:21→21:37)
[2019-01-25] MEDS: AMIODARONE 200 MG TAB PO SCH ×2 (08:56→21:36)
[2019-01-25] MEDS: ASPIRIN (EC) 81 MG TAB PO SCH (08:57)
[2019-01-25] MEDS: ENOXAPARIN 80 MG/0.8 ML SYG SC SCH ×2 (09:04→21:00)
--- NOTE | 2019-01-25 11:45 | CONS ---
Assessment/Plan Assessment/Plan Hospital Course (Demo Recall) IMPRESSION: 1. Atrial fibrillation with rapid ventricular response-improved overall s/p IV digoxin loading 2. Positive troponin in the setting of rapid AFib, likely type 2 demand infarct. 3. Electrocardiogram with ST depressions with tachycardia. 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 5. History of prior ST elevation myocardial infarction in 2011. 6. Chest pain, likely secondary to palpitations and rapid AFib. 7. Dizziness. 8. Subtherapeutic INR. Recc: -Tele -serial ecg's -continue diltiazem as patient will comply with -Contineu lovenox -Continue IV amio with transition to po amio in attempt to chemically cardiovert -Will give additional dose IVP digoxin -continue coumadin loading and follow-up INR -Will schedule for [facility]ER[facility]/DCCV friday as posssible -Rx anxiety Consultation Date/Type/Reason Admit Date/Time January 22, 2019 at 12:27 Initial Consult Date 01/22/19 Type of Consult Cardiology Reason for Consultation AF Requesting Provider: SAMIR FISHER Date/Time of Note DATE: 01/25/19 TIME: 11:43 Exam/Review of Systems Vital Signs Vitals Vital Signs Date Temp Pulse Resp B/P (MAP) Pulse Ox O2 O2 Flow FiO2 Time Delivery Rate 01/25/19 97.8 79 18 126/87 98 Room Air 11:17 (100) 01/22/19 2.0 17:49 Intake and Output 01/24/19 01/24/19 01/25/19 1515:00 23:00 07:00 IntakeIntake Total 1200 ml 300 ml BalanceBalance 1200 ml 300 ml Exam Exam Review of Systems: CONSTITUTIONAL: No fevers, chills. PULMONARY: No sob CARDIOVASCULAR: No chest pain/palpitations GASTROINTESTINAL: No nausea/vomiting. GENITOURINARY: No hematuria/dysuria. MUSCULOSKELETAL: No myagias/arthalgias. PSYCHIATRIC: The patient denies depression. NEUROLOGIC: No weakness Constitutional: alert, oriented Psych: no complaints Head: normocephalic ENMT: mucosa pink and moist Neck: supple, jvd (9 cm water) Respiratory: diminished breath sounds Cardiovascular: regular rate and rhythm Gastrointestinal: soft, non-tender Musculoskeletal: muscle tone (normal) Extremities: edema (none) Neurological: other (No focal deficits) Labs Result Diagram: 01/24/1951801/24/19518 Results 24hrs Laboratory Tests Test 01/25/19 06:02 Prothrombin Time 21.5 H Prothrombin Time Ratio 1.7 INR International Normalized Ratio 1.86 Medications Medications Current Medications Diltiazem HCl (Cardizem Iv) 5 mg Q4 PRN IV HR>110 Hold SBP<100; Start 01/22/19 at 14:00 Alprazolam (Xanax) 0.5 mg BID PRN PO ANXIETY Last administered on 01/24/19at 23:56; Admin Dose 0.5 MG; Start 01/22/19 at 14:30 Aspirin (Halfprin) 81 mg DAILY PO Last administered on 01/25/19at 08:57; Admin Dose 81 MG; Start 01/23/19 at 09:00 Atorvastatin Calcium (Lipitor) 20 mg QHS PO Last administered on 01/24/19at 20:38; Admin Dose 20 MG; Start 01/22/19 at 21:00 Paroxetine HCl (Paxil) 40 mg HS PO Last administered on 01/24/19at 20:42; Admin Dose 40 MG; Start 01/22/19 at 21:00 IV Flush (NS 3 ml) 3 ml PER PROTOCOL IV ; Start 01/22/19 at 14:30 Ondansetron HCl (Zofran Inj) 4 mg Q6H PRN IV NAUSEA/VOMITING; Start 01/22/19 at 14:30 Acetaminophen (Tylenol Tab) 650 mg Q6H PRN PO .PAIN 1-3 OR TEMP; Start 01/22/19 at 14:30 Morphine Sulfate (morphine) 2 mg Q4H PRN IV .SEVERE PAIN 7-10; Start 01/22/19 at 14:30 Nitroglycerin (Nitroglycerin (Sl Tab) 0.4 Mg) 1 tab Q5M PRN SL ANGINA; Start 01/22/19 at 14:30 Enoxaparin Sodium (Lovenox) 80 mg Q12 SC Last administered on 01/25/19at 09:04; Admin Dose 80 MG; Start 01/22/19 at 21:00 Diltiazem HCl (Cardizem) 60 mg Q8 PO Last administered on 01/25/19at 06:21; Admin Dose 60 MG; Start 01/24/19 at 22:00 Digoxin (Digoxin) 0.125 mg DAILY@13 PO ; Start 01/25/19 at 13:00 Amiodarone HCl (Cordarone) 400 mg BID PO Last administered on 01/25/19at 08:56; Admin Dose 400 MG; Start 01/24/19 at 21:00 MALI LILLY January 25, 2019 11:45
--- NOTE | 2019-01-25 12:01 | PN ---
Date/Time of Note Date/Time of Note DATE: 01/25/19 TIME: 12:00 Assessment/Plan VTE Prophylaxis Risk score (from Ns)>0 risk: 3 SCD applied (from Ns): No SCD contraindicated: other Pharmacological prophylaxis: LMWH, warfarin tx Lines/Catheters IV Catheter Type (from [facility]): Peripheral IV Assessment/Plan Hospital Course SUBJECTIVE: Denies any chest pain or palpitations. OBJECTIVE: Physical Exam General: Obese, 68 year-old male lying in bed in no apparent distress. HEENT: Normocephalic, atraumatic. Eyes: Anicteric sclerae, conjunctivae clear. ENT: Nasal septum midline, oral mucosa moist. Neck supple. Respiratory: Bilaterally clear breath sounds. No use of accessory muscles of respiration. No adventitious breath sounds. Cardiovascular: S1, S2 heard. Irregularly irregular rhythm. Abdomen: Soft, nontender, and nondistended. Bowel sounds positive in all 4 qu adrants. Genitourinary: Deferred. Extremities: No cyanosis, no clubbing. Bilateral lower extremity edema. Peripheral pulses palpable. Neurologic: Cranial nerves II through XII grossly intact. The patient is awake, alert, and oriented. Skin: Normal skin turgor. No skin rashes. Labs & Vitals per chart ASSESSMENT & PLAN 68-year-old male with comorbidities including atrial fibrillation on anticoagulation, history of permanent pacemaker, history of bladder cancer, and obesity who came to the emergency room with chief complaint of palpitations and substernal chest discomfort, who was found to have underlying A. fib with RVR and elevated troponins. The patient was admitted to inpatient setting for further treatment and evaluation. 1. A. fib with RVR. -Currently rate controlled. -Continue amiodarone, diltiazem, digoxin. -On therapeutic anticoagulation. -Plan for DC cardioversion. 2. NSTEMI. -Most probably type II event in the setting of underlying A. fib. -Cardiology following. 3. Sub-therapeutic INR. -On Lovenox bridge. 4. Depression. -Continue Paxil. 5. History of renal cell carcinoma. -Worked up prior and refused surgery. 6. Obesity. -BMI almost 40 kg/m. -Weight reduction advised. 7. Fluids, electrolytes, and nutrition. -Low-cholesterol diet. 8. DVT prophylaxis per -On therapeutic anticoagulation. 9. Plan. -Continue current management. -Await DC cardioversion. The patient was seen in collaboration with Dr. Olivarez. Result Diagram: 01/24/1951801/24/19518 Results 24hrs Laboratory Tests Test 01/25/19 06:02 Prothrombin Time 21.5 H Prothrombin Time Ratio 1.7 INR International Normalized Ratio 1.86 Exam/Review of Systems Exam Vitals Vital Signs Date Temp Pulse Resp B/P (MAP) Pulse Ox O2 O2 Flow FiO2 Time Delivery Rate 01/25/19 97.8 79 18 126/87 98 Room Air 11:17 (100) 01/22/19 2.0 17:49 Intake and Output 01/24/19 01/24/19 01/25/19 1515:00 23:00 07:00 IntakeIntake Total 1200 ml 300 ml BalanceBalance 1200 ml 300 ml Results Results 24hrs Laboratory Tests Test 01/25/19 06:02 Prothrombin Time 21.5 H Prothrombin Time Ratio 1.7 INR International Normalized Ratio 1.86 Medications Medication Current Medications Diltiazem HCl (Cardizem Iv) 5 mg Q4 PRN IV HR>110 Hold SBP<100; Start 01/22/19 at 14:00 Alprazolam (Xanax) 0.5 mg BID PRN PO ANXIETY Last administered on 01/24/19at 23:56; Admin Dose 0.5 MG; Start 01/22/19 at 14:30 Aspirin (Halfprin) 81 mg DAILY PO Last administered on 01/25/19at 08:57; Admin Dose 81 MG; Start 01/23/19 at 09:00 Atorvastatin Calcium (Lipitor) 20 mg QHS PO Last administered on 01/24/19at 20:38; Admin Dose 20 MG; Start 01/22/19 at 21:00 Paroxetine HCl (Paxil) 40 mg HS PO Last administered on 01/24/19at 20:42; Admin Dose 40 MG; Start 01/22/19 at 21:00 IV Flush (NS 3 ml) 3 ml PER PROTOCOL IV ; Start 01/22/19 at 14:30 Ondansetron HCl (Zofran Inj) 4 mg Q6H PRN IV NAUSEA/VOMITING; Start 01/22/19 at 14:30 Acetaminophen (Tylenol Tab) 650 mg Q6H PRN PO .PAIN 1-3 OR TEMP; Start 01/22/19 at 14:30 Morphine Sulfate (morphine) 2 mg Q4H PRN IV .SEVERE PAIN 7-10; Start 01/22/19 at 14:30 Nitroglycerin (Nitroglycerin (Sl Tab) 0.4 Mg) 1 tab Q5M PRN SL ANGINA; Start 01/22/19 at 14:30 Enoxaparin Sodium (Lovenox) 80 mg Q12 SC Last administered on 01/25/19at 09:04; Admin Dose 80 MG; Start 01/22/19 at 21:00 Diltiazem HCl (Cardizem) 60 mg Q8 PO Last administered on 01/25/19at 06:21; Admin Dose 60 MG; Start 01/24/19 at 22:00 Digoxin (Digoxin) 0.125 mg DAILY@13 PO ; Start 01/25/19 at 13:00 Amiodarone HCl (Cordarone) 400 mg BID PO Last administered on 01/25/19at 08:56; Admin Dose 400 MG; Start 01/24/19 at 21:00 Warfarin Sodium (Coumadin) 7.5 mg ONCE PO ; Start 01/25/19 at 15:00; Status LUCIA MCGINNIS NP January 25, 2019 12:01
[2019-01-25] MEDS: DIGOXIN 0.125 MG TAB PO SCH (13:24)
[2019-01-25] MEDS ORDERED: WARFARIN 7.5 MG TAB PO ONE (15:00)
[2019-01-25] MEDS: ATORVASTATIN 20 MG TAB PO SCH (21:36)
[2019-01-25] MEDS: PAROXETINE 20 MG TAB PO SCH (21:36)
[2019-01-26] VITALS (20 sets, daily range): BP systolic 105–141; BP diastolic 68–95; PULSE 44–86; RESP 12–18
--- NOTE | 2019-01-26 05:54 | PN ---
Date/Time of Note Date/Time of Note DATE: 01/26/19 TIME: 05:53 Assessment/Plan VTE Prophylaxis Risk score (from Ns)>0 risk: 3 SCD applied (from Ns): No SCD contraindicated: other Pharmacological prophylaxis: LMWH, warfarin tx Lines/Catheters IV Catheter Type (from [facility]): Peripheral IV Assessment/Plan Hospital Course SUBJECTIVE: Denies any chest pain or palpitations. OBJECTIVE: Physical Exam General: Obese, 68 year-old male lying in bed in no apparent distress. HEENT: Normocephalic, atraumatic. Eyes: Anicteric sclerae, conjunctivae clear. ENT: Nasal septum midline, oral mucosa moist. Neck supple. Respiratory: Bilaterally clear breath sounds. No use of accessory muscles of respiration. No adventitious breath sounds. Cardiovascular: S1, S2 heard. Irregularly irregular rhythm. Abdomen: Soft, nontender, and nondistended. Bowel sounds positive in all 4 qu adrants. Genitourinary: Deferred. Extremities: No cyanosis, no clubbing. Bilateral lower extremity edema. Peripheral pulses palpable. Neurologic: Cranial nerves II through XII grossly intact. The patient is awake, alert, and oriented. Skin: Normal skin turgor. No skin rashes. Labs & Vitals per chart ASSESSMENT & PLAN 68-year-old male with comorbidities including atrial fibrillation on anticoagulation, history of permanent pacemaker, history of bladder cancer, and obesity who came to the emergency room with chief complaint of palpitations and substernal chest discomfort, who was found to have underlying A. fib with RVR and elevated troponins. The patient was admitted to inpatient setting for further treatment and evaluation. 1. A. fib with RVR. -Currently rate controlled. -Continue amiodarone, diltiazem, digoxin. -On therapeutic anticoagulation. -Plan for DC cardioversion. 2. NSTEMI. -Most probably type II event in the setting of underlying A. fib. -Cardiology following. 3. Sub-therapeutic INR. -On Lovenox bridge. 4. Depression. -Continue Paxil. 5. History of renal cell carcinoma. -Worked up prior and refused surgery. 6. Obesity. -BMI almost 40 kg/m. -Weight reduction advised. 7. Fluids, electrolytes, and nutrition. -Low-cholesterol diet. 8. DVT prophylaxis per -On therapeutic anticoagulation. 9. Plan. -Continue current management. -Await DC cardioversion. The patient was seen in collaboration with Dr. Olivarez. Result Diagram: 01/24/1951801/24/19518 Results 24hrs Laboratory Tests Test 01/25/19 06:02 01/26/19 05:11 Prothrombin Time 21.5 H Prothrombin Time Ratio 1.7 INR International Normalized Ratio 1.86 White Blood Count Pending Red Blood Count Pending Hemoglobin Pending Hematocrit Pending Mean Corpuscular Volume Pending Mean Corpuscular Hemoglobin Pending Mean Corpuscular Hemoglobin Concent Pending Red Cell Distribution Width Pending Platelet Count Pending Mean Platelet Volume Pending Exam/Review of Systems Exam Vitals Vital Signs Date Temp Pulse Resp B/P (MAP) Pulse Ox O2 O2 Flow FiO2 Time Delivery Rate 01/26/19 44 04:46 01/26/19 98.9 18 105/68 98 Room Air 04:45 (80) 01/22/19 2.0 17:49 Intake and Output 01/25/19 01/25/19 01/26/19 1515:00 23:00 07:00 IntakeIntake Total 1600 ml 900 ml BalanceBalance 1600 ml 900 ml Results Results 24hrs Laboratory Tests Test 01/25/19 06:02 01/26/19 05:11 Prothrombin Time 21.5 H Prothrombin Time Ratio 1.7 INR International Normalized Ratio 1.86 White Blood Count Pending Red Blood Count Pending Hemoglobin Pending Hematocrit Pending Mean Corpuscular Volume Pending Mean Corpuscular Hemoglobin Pending Mean Corpuscular Hemoglobin Concent Pending Red Cell Distribution Width Pending Platelet Count Pending Mean Platelet Volume Pending Medications Medication Current Medications Diltiazem HCl (Cardizem Iv) 5 mg Q4 PRN IV HR>110 Hold SBP<100; Start 01/22/19 at 14:00 Alprazolam (Xanax) 0.5 mg BID PRN PO ANXIETY Last administered on 01/24/19at 23:56; Admin Dose 0.5 MG; Start 01/22/19 at 14:30 Aspirin (Halfprin) 81 mg DAILY PO Last administered on 01/25/19at 08:57; Admin Dose 81 MG; Start 01/23/19 at 09:00 Atorvastatin Calcium (Lipitor) 20 mg QHS PO Last administered on 01/25/19at 21:36; Admin Dose 20 MG; Start 01/22/19 at 21:00 Paroxetine HCl (Paxil) 40 mg HS PO Last administered on 01/25/19 21:36; Admin Dose 40 MG; Start 01/22/19 at 21:00 IV Flush (NS 3 ml) 3 ml PER PROTOCOL IV ; Start 01/22/19 at 14:30 Ondansetron HCl (Zofran Inj) 4 mg Q6H PRN IV NAUSEA/VOMITING; Start 01/22/19 at 14:30 Acetaminophen (Tylenol Tab) 650 mg Q6H PRN PO .PAIN 1-3 OR TEMP; Start 01/22/19 at 14:30 Morphine Sulfate (morphine) 2 mg Q4H PRN IV .SEVERE PAIN 7-10; Start 01/22/19 at 14:30 Nitroglycerin (Nitroglycerin (Sl Tab) 0.4 Mg) 1 tab Q5M PRN SL ANGINA; Start at 14:30 Enoxaparin Sodium (Lovenox) 80 mg Q12 SC Last administered on 01/25/19at 09:04; Admin Dose 80 MG; Start 01/22/19 at 21:00 Diltiazem HCl (Cardizem) 60 mg Q8 PO Last administered on 01/25/19at 21:37; Admin Dose 60 MG; Start 01/24/19 at 22:00 Digoxin (Digoxin) 0.125 mg DAILY@13 PO Last administered on 01/25/19 13:24; Admin Dose 0.125 MG; Start 01/25/19 at 13:00 Amiodarone HCl (Cordarone) 400 mg BID PO Last administered on 01/25/19 21:36; Admin Dose 400 MG; Start 01/24/19 at 21:00 LUCIA TAVERA NP January 26, 2019 05:54
[2019-01-26] MEDS: DILTIAZEM 30 MG TAB PO SCH ×3 (06:00→21:54)
--- NOTE | 2019-01-26 08:23 | CONS ---
Consult Date/Type/Reason Admit Date/Time January 22, 2019 at 12:27 Initial Consult Date Requesting Provider: SAMIR FISHER Date/Time of Note DATE: 01/26/19 TIME: 08:20 Subjective NO acute events - pt still in a. fib - rate controlled - INR going up to 2.0 - SAMEERA/CV planned today with Dr. Ba ROS: No fever, no chills, no nausea, no vomiting, no diarrhea/constipation - better tachy now No recent weight changes No chest pain, no PND, no orthopnea No dizziness, blurred vision No thirst, no heat or cold intolerance Objective Vitals Vital Signs Date Temp Pulse Resp B/P (MAP) Pulse Ox O2 O2 Flow FiO2 Time Delivery Rate 01/26/19 71 08:15 01/26/19 97.8 18 115/72 96 Room Air 07:10 (86) 01/22/19 2.0 17:49 Intake and Output 01/25/19 01/25/19 01/26/19 1515:00 23:00 07:00 IntakeIntake Total 1600 ml 900 ml BalanceBalance 1600 ml 900 ml Exam General: WN/WD/NAD, AOx 3 HEENT: Unicetric/atraumatic/EOMI (follow commands) NECK: JVD elevated, no thyromegaly Lymph: no lymphadenopathy HEART: ir irregular with no S3, II/ systolic murmur at apex, ICD LUNGS: Coarse sounds ABD: soft, NT, ND, +BS : Intact Neuro: non focal SKIN: chronic changes EXT: trace edema Results/Medications Result Diagram: 01/26/19 0511 01/26/19 0511 Results 24 hrs Laboratory Tests Test 01/26/19 05:11 White Blood Count 6.1 Red Blood Count 4.83 Hemoglobin 13.6 L Hematocrit 40.8 L Mean Corpuscular Volume 84.5 Mean Corpuscular Hemoglobin 28.2 L Mean Corpuscular Hemoglobin Concent 33.3 Red Cell Distribution Width 13.2 Platelet Count 211 Mean Platelet Volume 10.6 H Immature Granulocytes % 0.300 Neutrophils % 44.4 Lymphocytes % 43.0 Monocytes % 8.3 Eosinophils % 3.3 Basophils % 0.7 Nucleated Red Blood Cells % 0.0 Immature Granulocytes # 0.020 Neutrophils # 2.7 Lymphocytes # 2.6 Monocytes # 0.5 Eosinophils # 0.2 Basophils # 0.0 Nucleated Red Blood Cells # 0.0 Prothrombin Time 22.8 H Prothrombin Time Ratio 1.8 INR International Normalized Ratio 2.00 Sodium Level 141 Potassium Level 4.4 Chloride Level 109 Carbon Dioxide Level 27 Anion Gap 5 Blood Urea Nitrogen 17 Creatinine 1.16 Est Glomerular Filtrat Rate mL/min > 60 Glucose Level 104 Calcium Level 9.0 Phosphorus Level 3.2 Magnesium Level 2.1 Home Meds Reported Medications Warfarin Sodium* (Coumadin*) 3 Mg Tablet, 3 MG PO TUE,THUR, TAB 01/22/19 Warfarin Sodium* (Warfarin Sodium*) 6 Mg Tablet, 6 MG PO SUN,MON,WED,FRI,SAT, T AB 01/22/19 Paroxetine Hcl* (Paxil*) 40 Mg Tablet, 40 MG PO HS, TAB 10/09/18 Atorvastatin Calcium* (Atorvastatin Calcium*) 20 Mg Tablet, 20 MG PO QHS, #30 TAB 10/09/18 Aspirin* (Aspirin* EC) 81 Mg Tablet.dr, 81 MG PO DAILY, TAB 10/09/18 Alprazolam* (Alprazolam*) 0.5 Mg Tablet, 0.5 MG PO BID PRN for ANXIETY, TAB 10/09/18 Discontinued Reported Medications Warfarin Sodium* (Warfarin Sodium*) 6 Mg Tablet, 6 MG PO DAILY, TAB 10/09/18 Medications Current Medications Diltiazem HCl (Cardizem Iv) 5 mg Q4 PRN IV HR>110 Hold SBP<100; Start 01/22/19 at 14:00 Alprazolam (Xanax) 0.5 mg BID PRN PO ANXIETY Last administered on 01/24/19at 23:56; Admin Dose 0.5 MG; Start 01/22/19 at 14:30 Aspirin (Halfprin) 81 mg DAILY PO Last administered on 01/25/19at 08:57; Admin Dose 81 MG; Start 01/23/19 at 09:00 Atorvastatin Calcium (Lipitor) 20 mg QHS PO Last administered on 01/25/19at 21:36; Admin Dose 20 MG; Start 01/22/19 at 21:00 Paroxetine HCl (Paxil) 40 mg HS PO Last administered on 01/25/19at 21:36; Admin Dose 40 MG; Start 01/22/19 at 21:00 IV Flush (NS 3 ml) 3 ml PER PROTOCOL IV ; Start 01/22/19 at 14:30 Ondansetron HCl (Zofran Inj) 4 mg Q6H PRN IV NAUSEA/VOMITING; Start 01/22/19 at 14:30 Acetaminophen (Tylenol Tab) 650 mg Q6H PRN PO .PAIN 1-3 OR TEMP; Start 01/22/19 at 14:30 Morphine Sulfate (morphine) 2 mg Q4H PRN IV .SEVERE PAIN 7-10; Start 01/22/19 at 14:30 Nitroglycerin (Nitroglycerin (Sl Tab) 0.4 Mg) 1 tab Q5M PRN SL ANGINA; Start 01/22/19 at 14:30 Enoxaparin Sodium (Lovenox) 80 mg Q12 SC Last administered on 01/25/19at 09:04; Admin Dose 80 MG; Start 01/22/19 at 21:00 Diltiazem HCl (Cardizem) 60 mg Q8 PO Last administered on 01/25/19at 21:37; Admin Dose 60 MG; Start 01/24/19 at 22:00 Digoxin (Digoxin) 0.125 mg DAILY@13 PO Last administered on 01/25/19at 13:24; Admin Dose 0.125 MG; Start 01/25/19 at 13:00 Amiodarone HCl (Cordarone) 400 mg BID PO Last administered on 01/25/19at 21:36; Admin Dose 400 MG; Start 01/24/19 at 21:00 Assessment/Plan Hospital Course (Demo Recall) 1. Atrial fibrillation with rapid ventricular response-improved overall s/p IV digoxin loading - rate controled, SAMEERA/CV planned today 2. Positive troponin in the setting of rapid AFib, likely type 2 demand infarct - no CP now - will monitor cliniaclly now. 3. Electrocardiogram with ST depressions with tachycardia. 4. 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 On meds. 5. History of prior ST elevation myocardial infarction in 2011. 6. Chest pain, likely secondary to palpitations and rapid AFib - now resolved with better rate. 7. Dizziness- stable. 8. Subtherapeutic INR- going up to 2.0 - con't Coumadin dosing. RIVER GALLAGHER MD January 26, 2019 08:23
[2019-01-26] MEDS: ENOXAPARIN 80 MG/0.8 ML SYG SC SCH ×2 (09:00→22:38)
[2019-01-26] MEDS: AMIODARONE 200 MG TAB PO SCH ×2 (10:52→20:30)
--- NOTE | 2019-01-26 12:30 | PREAC ---
Date/Time of Note Date/Time of Note DATE: 01/26/19 TIME: 12:29 Anesthesia Eval and Record Evaluation Time Pre-Procedure Interview DATE: 01/26/19 TIME: 12:29 Age 68 Sex male NPO: 8 hrs Preoperative diagnosis Acute AFib Planned procedure SAMEERA Past Medical History Past Medical History: Includes Cardio: HTN, Dyslipidemia, Arrythmia GI: Morbid obesity Surgery & Anesthesia Issues No known issue Meds Anticoagulation: Yes Beta Ciro within 24 hr: No Reason Beta Ciro not given: Pt. not on B-Ciro Reported Medications Warfarin Sodium* (Coumadin*) 3 Mg Tablet, 3 MG PO TUE,THUR, TAB 01/22/19 Warfarin Sodium* (Warfarin Sodium*) 6 Mg Tablet, 6 MG PO SUN,MON,WED,FRI,SAT, TAB 01/22/19 Paroxetine Hcl* (Paxil*) 40 Mg Tablet, 40 MG PO HS, TAB 10/09/18 Atorvastatin Calcium* (Atorvastatin Calcium*) 20 Mg Tablet, 20 MG PO QHS, #30 TAB 10/09/18 Aspirin* (Aspirin* EC) 81 Mg Tablet.dr, 81 MG PO DAILY, TAB 10/09/18 Alprazolam* (Alprazolam*) 0.5 Mg Tablet, 0.5 MG PO BID PRN for ANXIETY, TAB 10/09/18 Discontinued Reported Medications Warfarin Sodium* (Warfarin Sodium*) 6 Mg Tablet, 6 MG PO DAILY, TAB 10/09/18 Current Medications Diltiazem HCl (Cardizem Iv) 5 mg Q4 PRN IV HR>110 Hold SBP<100; Start 01/22/19 at 14:00 Alprazolam (Xanax) 0.5 mg BID PRN PO ANXIETY Last administered on 01/24/19at 23:56; Admin Dose 0.5 MG; Start 01/22/19 at 14:30 Aspirin (Halfprin) 81 mg DAILY PO Last administered on 01/25/19at 08:57; Admin Dose 81 MG; Start 01/23/19 at 09:00 Atorvastatin Calcium (Lipitor) 20 mg QHS PO Last administered on 01/25/19at 21:36; Admin Dose 20 MG; Start 01/22/19 at 21:00 Paroxetine HCl (Paxil) 40 mg HS PO Last administered on 01/25/19at 21:36; Admin Dose 40 MG; Start 01/22/19 at 21:00 IV Flush (NS 3 ml) 3 ml PER PROTOCOL IV ; Start 01/22/19 at 14:30 Ondansetron HCl (Zofran Inj) 4 mg Q6H PRN IV NAUSEA/VOMITING; Start 01/22/19 at 14:30 Acetaminophen (Tylenol Tab) 650 mg Q6H PRN PO .PAIN 1-3 OR TEMP; Start 01/22/19 at 14:30 Morphine Sulfate (morphine) 2 mg Q4H PRN IV .SEVERE PAIN 7-10; Start 01/22/19 at 14:30 Nitroglycerin (Nitroglycerin (Sl Tab) 0.4 Mg) 1 tab Q5M PRN SL ANGINA; Start 01/22/19 at 14:30 Enoxaparin Sodium (Lovenox) 80 mg Q12 SC Last administered on 01/25/19at 09:04; Admin Dose 80 MG; Start 01/22/19 at 21:00 Diltiazem HCl (Cardizem) 60 mg Q8 PO Last administered on 01/25/19at 21:37; Admin Dose 60 MG; Start 01/24/19 at 22:00 Digoxin (Digoxin) 0.125 mg DAILY@13 PO Last administered on 01/25/19at 13:24; Admin Dose 0.125 MG; Start 01/25/19 at 13:00 Amiodarone HCl (Cordarone) 400 mg BID PO Last administered on 01/26/19at 10:52; Admin Dose 400 MG; Start 01/24/19 at 21:00 Meds reviewed: Yes Allergies Coded Allergies: atenolol (Verified Allergy, Mild, SOB, 01/22/19) PT STATED "FEEL LIKE CHOKING" metoprolol (Verified Allergy, Mild, SOB, 01/22/19) PT STATED "FEEL LIKE CHOKING" ticagrelor (Verified Allergy, Mild, SOB, 01/22/19) PT STATED "FEEL LIKE CHOKING' Allergies Reviewed: Yes Labs/Studies Labs Reviewed: Reviewed by anesthesiologist Result Diagram: 01/26/19 0511 01/26/19 0511 Laboratory Tests 01/26/19 05:11 test: N/A Studies: ECG Pre-procedure Exam Last vitals Vital Signs Date Temp Pulse Resp B/P (MAP) Pulse Ox O2 O2 Flow FiO2 Time Delivery Rate 01/26/19 83 12:03 01/26/19 98.4 18 137/95 98 Room Air 11:31 (109) 01/22/19 2.0 17:49 Airway: Adequate mouth opening, Adequate thyromental dist Mallampati: Mallampati III Teeth: Normal Lung: Normal Heart: Normal ASA Physical Status ASA physical status: 3 Emergency: None Planned Anesthetic General/MAC: MAC Planned Pain Management Parenteral pain med Pre-operative Attestations Prior to commencing anesthesia and surgery, the patient was re-evaluated, there was verification of: *The patient's identity *The results of appropriate recent lab work and preoperative vital signs *The above evaluation not changing prior to induction *Anesthetic plan, risk benefits, alternative and complications discussed with patient/family; questions answered; patient/family understands, accepts and wishes to proceed. MICHELLE ZHU MD January 26, 2019 12:30
[2019-01-26] MEDS ORDERED: PROPOFOL 60 ML ONE (12:37)
[2019-01-26] MEDS ORDERED: LIDOCAINE 2% (SDV) 5 ML INJ ONE (12:37)
[2019-01-26] MEDS ORDERED: MEPERIDINE 25 MG INJ IV PRN (14:30)
[2019-01-26] MEDS ORDERED: ONDANSETRON 4 MG INJ IV PRN (14:30)
[2019-01-26] MEDS ORDERED: DIPHENHYDRAMINE 50 MG INJ IV PRN (14:30)
[2019-01-26] MEDS ORDERED: METOCLOPRAMIDE 10 MG INJ IV PRN (14:30)
[2019-01-26] MEDS ORDERED: FENTAnyl 50 MCG/ML VIAL IV PRN (14:30)
--- NOTE | 2019-01-26 14:31 | PAC ---
Date/Time of Note Date/Time of Note DATE: 01/26/19 TIME: 14:30 Post-Anesthesia Notes Post-Anesthesia Note Last documented vital signs Vital Signs Date Temp Pulse Resp B/P (MAP) Pulse Ox O2 O2 Flow FiO2 Time Delivery Rate 01/26/19 83 12:03 01/26/19 98.4 18 137/95 98 Room Air 11:31 (109) 01/22/19 2.0 17:49 Activity: WNL Respiratory function: WNL Cardiovascular function: WNL Mental status: Baseline Pain reasonably controlled: Yes Hydration appropriate: Yes Nausea/Vomiting absent: Yes Comments BP:107/80, P:74, Spo2:100%, T:98,8 MICHELLE ZHU MD January 26, 2019 14:31
[2019-01-26] MEDS: DIGOXIN 0.125 MG TAB PO SCH (16:22)
[2019-01-26] MEDS: ASPIRIN (EC) 81 MG TAB PO SCH (16:22)
--- NOTE | 2019-01-26 18:18 | CARRPT ---
DATE OF PROCEDURE: 01/26/2019 TYPE OF PROCEDURE: 1. Transesophageal echo. 2. Direct current cardioversion to sinus rhythm, atrial fibrillation. ATTENDING PHYSICIAN: Mali Ba MD REFERRING PHYSICIAN: Dr. Bautista from the hospitalist service. INDICATION: Atrial fibrillation refractory to medical therapy. TYPE OF ANESTHESIA: MAC under direction of anesthesiologist at bedside, ____. BRIEF HISTORY AND HOSPITAL COURSE: Mr. Wu is a 68-year-old male with history of hypertension, dys lipidemia, coronary artery, status prior stent, atrial fibrillation, recurrent, status post multiple prior direct current cardioversions, who presented with rapid atrial fibrillation, placed on medical therapy with miguel agents and amiodarone and failed to convert to sinus rhythm with highly symptomati c atrial fibrillation, who is brought for transesophageal echo with direct current cardioversion to t reat his refractory highly symptomatic atrial fibrillation. DESCRIPTION OF PROCEDURE: After informed consent was obtained, he was brought to the [facility] cardiac catheterization lab holding room where he was connected to continuous telemetry monitoring and continuous O2 saturation monitoring and blood pressure cuff cycling every 3 to 5 karen loki. The patient had a bite block placed in his mouth and under direction of anesthesiologist, ____, at bedside, received propofol and MAC anesthesia in order to achieve adequate anesthesia. Once the patient receive adequate anesthesia, a bite block was passed and transesophageal echo probe was intub ated into the esophagus and using multiplanar imaging and color flow Doppler interrogation, the patie nt's intracardiac structures were adequately interrogated including the left atrial appendage. The p atient to assess for any clot or spontaneous contrast, which there was not subsequently and removed. Subsequently, at this time, the patient already had the pacer pads placed anterior, posterior positi on of the thorax, and received a shock at 300 joules in sync mode converting him successfully to sinu s rhythm. Subsequently, the patient was allowed to wake from anesthetized state, completing procedur e. There were no noted complications. FINDINGS: 1. Transesophageal echo. The patient not have any definite left atrial appendage thrombus. No spon taneous contrast. Left atrial appendage velocity approximately 40 cm per second. The patient had no atrioventricular signs of thrombus. 2. Direct current cardioversion. The patient received a single shock of 100 joules in sync mode suc cessfully currently in a sinus rhythm. IMPRESSION: 1. No definite findings of left atrial appendage thrombus or spontaneous contrast. 2. Successful direct current cardioversion to sinus rhythm with single shock. RECOMMENDATIONS: 1. At this time, the patient will be allowed to awake from his anesthetized state. The patient has a clear liquid as tolerated and advance diet as tolerated after 2 hours n.p.o. Dictated By: MALI NOONAN/ZAKI Conf#: [id number] DID#: [id number] CC: TIMI BAUTISTA MD;*EndCC*
[2019-01-26] MEDS: PAROXETINE 20 MG TAB PO SCH (20:30)
[2019-01-26] MEDS: ATORVASTATIN 20 MG TAB PO SCH (20:30)
[2019-01-26] MEDS: ALPRAZOLAM 0.5 MG TAB PO PRN (21:56)
[2019-01-27] VITALS (10 sets, daily range): BP systolic 104–131; BP diastolic 58–76; PULSE 62–79; RESP 18–20
[2019-01-27] MEDS: DILTIAZEM 30 MG TAB PO SCH ×2 (05:57→15:19)
[2019-01-27] MEDS: ASPIRIN (EC) 81 MG TAB PO SCH (08:24)
[2019-01-27] MEDS: AMIODARONE 200 MG TAB PO SCH (09:00)
--- NOTE | 2019-01-27 09:01 | RADRPT ---
Vent Rate: 85 bpm RR Interval: 749 msec MO Interval: [id number] msec QRS Duration: 95 msec QT Interval: 371 msec QTC Interval: 429 msec P-R-T [place]: [id number] - 54 - [id number] degrees AFIB WITH pvc Nonspecific repol abnormality, diffuse leads...ST dep, T flat/neg, ant/lat/inf Electronically Signed By: Nasim Schwartz
--- NOTE | 2019-01-27 09:11 | RADRPT ---
Vent Rate: 113 bpm RR Interval: 529 msec FL Interval: [id number] msec QRS Duration: 91 msec QT Interval: 340 msec QTC Interval: 467 msec P-R-T [place]: [id number] - 2 - 46 degrees Atrial fibrillation... abnormal ECG Electronically Signed By: Nasim Schwartz
[2019-01-27] MEDS: DIGOXIN 0.125 MG TAB PO SCH (13:44)
--- NOTE | 2019-01-27 16:48 | PDOCDIS ---
Discharge Instructions CONDITION [id number] Patient Condition: [id number] Stable HOME CARE INSTRUCTIONS: [id number] Diet Instructions: [id number] Low Fat /Cholesterol OTHER ORDERS: Other Orders: 1. Resume home medications. 2. Resume activities as tolerated. 3. Follow a low-cholesterol diet. 4. 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 5. Please go to the nearest emergency room if you have any chest pain, palpitations, significant shortness of breath, or any other unusual signs/symptoms. LUCIA TAVERA NP January 27, 2019 16:48
[2019-01-27] MEDS ORDERED: DILT120C77 PO (17:08)
--- NOTE | 2019-01-27 17:17 | CONS ---
Assessment/Plan Assessment/Plan Hospital Course (Demo Recall) IMPRESSION: 1. Atrial fibrillation with rapid ventricular response-improved overall s/p IV digoxin loading 2. Positive troponin in the setting of rapid AFib, likely type 2 demand infarct. 3. Electrocardiogram with ST depressions with tachycardia. 4. History of OIL TESTER and stent placement in [address] elevation myocardial infarction. 5. History of prior ST elevation myocardial infarction in 2011. 6. Chest pain, likely secondary to palpitations and rapid AFib. 7. Dizziness. 8. Subtherapeutic INR. Recc: -On tele -serial ecg's -continue diltiazem as patient will comply with -Continue -OK to d/c off of amio per patient preference -continue coumadin loading and follow-up INR -Rx anxiety -OK for d/c from cardiac standpoint with outpatient f/u Consultation Date/Type/Reason Admit Date/Time January 22, 2019 at 12:27 Initial Consult Date 01/22/19 Type of Consult Cardiology Reason for Consultation AF Requesting Provider: SAMIR FISHER Date/Time of Note DATE: 01/27/19 TIME: 17:11 Exam/Review of Systems Vital Signs Vitals Vital Signs Date Temp Pulse Resp B/P (MAP) Pulse Ox O2 O2 Flow FiO2 Time Delivery Rate 01/27/19 64 16:13 01/27/19 98.2 20 114/60 97 15:24 (78) 01/26/19 Room Air 20:39 Intake and Output 01/26/19 01/26/19 01/27/19 1515:00 23:00 07:00 IntakeIntake Total 500 ml 200 ml BalanceBalance 500 ml 200 ml Exam Exam Review of Systems: CONSTITUTIONAL: No fevers, chills. PULMONARY: No sob CARDIOVASCULAR: No chest pain/palpitations GASTROINTESTINAL: No nausea/vomiting. GENITOURINARY: No hematuria/dysuria. MUSCULOSKELETAL: No myagias/arthalgias. PSYCHIATRIC: The patient denies depression. NEUROLOGIC: No weakness Constitutional: alert Psych: no complaints Head: normocephalic ENMT: mucosa pink and moist Neck: supple, jvd (9 cm water) Respiratory: clear to auscultation Cardiovascular: regular rate and rhythm Gastrointestinal: soft, non-tender Musculoskeletal: muscle tone (normal) Extremities: edema (none) Neurological: other (No focal deficits) Labs Result Diagram: 01/27/19 0504 01/27/19 0504 Results 24hrs Laboratory Tests Test 01/27/19 05:04 White Blood Count 10.9 #H Red Blood Count 4.61 L Hemoglobin 13.0 L Hematocrit 39.4 L Mean Corpuscular Volume 85.5 Mean Corpuscular Hemoglobin 28.2 L Mean Corpuscular Hemoglobin Concent 33.0 Red Cell Distribution Width 13.5 Platelet Count 202 Mean Platelet Volume 10.9 H Immature Granulocytes % 0.300 Neutrophils % 71.2 Lymphocytes % 20.2 Monocytes % 7.3 Eosinophils % 0.8 Basophils % 0.2 Nucleated Red Blood Cells % 0.0 Immature Granulocytes # 0.030 Neutrophils # 7.7 H Lymphocytes # 2.2 Monocytes # 0.8 Eosinophils # 0.1 Basophils # 0.0 Nucleated Red Blood Cells # 0.0 Sodium Level 142 Potassium Level 4.0 Chloride Level 109 Carbon Dioxide Level 26 Anion Gap 7 Blood Urea Nitrogen 22 H Creatinine 1.20 Est Glomerular Filtrat Rate mL/min > 60 Glucose Level 108 Calcium Level 8.9 Phosphorus Level 3.2 Magnesium Level 2.2 Medications Medications Current Medications Diltiazem HCl (Cardizem Iv) 5 mg Q4 PRN IV HR>110 Hold SBP<100; Start 01/22/19 at 14:00 Alprazolam (Xanax) 0.5 mg BID PRN PO ANXIETY Last administered on 01/26/19at 21:56; Admin Dose 0.5 MG; Start 01/22/19 at 14:30 Aspirin (Halfprin) 81 mg DAILY PO Last administered on 01/27/19 08:24; Admin Dose 81 MG; Start 01/23/19 at 09:00 Atorvastatin Calcium (Lipitor) 20 mg QHS PO Last administered on 01/26/19 20:30; Admin Dose 20 MG; Start 01/22/19 at 21:00 Paroxetine HCl (Paxil) 40 mg HS PO Last administered on 01/26/19 20:30; Admin Dose 40 MG; Start 01/22/19 at 21:00 IV Flush (NS 3 ml) 3 ml PER PROTOCOL IV ; Start 01/22/19 at 14:30 Ondansetron HCl (Zofran Inj) 4 mg Q6H PRN IV NAUSEA/VOMITING; Start 01/22/19 at 14:30 Acetaminophen (Tylenol Tab) 650 mg Q6H PRN PO .PAIN 1-3 OR TEMP; Start 01/22/19 at 14:30 Morphine Sulfate (morphine) 2 mg Q4H PRN IV .SEVERE PAIN 7-10; Start 01/22/19 at 14:30 Nitroglycerin (Nitroglycerin (Sl Tab) 0.4 Mg) 1 tab Q5M PRN SL ANGINA; Start 01/22/19 at 14:30 Diltiazem HCl (Cardizem) 60 mg Q8 PO Last administered on 01/27/19at 15:19; Admin Dose 60 MG; Start 01/24/19 at 22:00 Digoxin (Digoxin) 0.125 mg DAILY@13 PO Last administered on 01/27/19at 13:44; Admin Dose 0.125 MG; Start 01/25/19 at 13:00 Amiodarone HCl (Cordarone) 400 mg BID PO Last administered on 01/26/19at 20:30; Admin Dose 400 MG; Start 01/24/19 at 21:00 MALI LILLY January 27, 2019 17:17
--- NOTE | 2019-01-27 18:06 | DS ---
Date/Time of Note Date/Time of Note DATE: 01/27/19 TIME: 18:04 Discharge Summary Admission/Discharge Info Admit Date/Time January 22, 2019 at 12:27 Discharge Date/Time January 27, 2019 at 17:47 Discharge Diagnosis 1. A. fib with RVR. S/P DC cardioversion. 2. NSTEMI. 3. Sub-therapeutic INR. 4. Depression. 5. History of renal cell carcinoma. 6. Obesity. BMI almost 40 kg/m. Patient Condition: Stable Consults 1. Evans Ba MD, Cardiology. 2. Evan Gamez MD, Cardiology. Procedures CARDIOLOGY REPORT DATE OF PROCEDURE: 01/26/2019 TYPE OF PROCEDURE: 1. Transesophageal echo. 2. Direct current cardioversion to sinus rhythm, atrial fibrillation. ATTENDING PHYSICIAN: Evans Ba MD REFERRING PHYSICIAN: Dr. Bautista from the hospitalist service. INDICATION: Atrial fibrillation refractory to medical therapy. TYPE OF ANESTHESIA: MAC under direction of anesthesiologist at bedside. Hx of Present Illness This is a 68-year-old male with comorbidities including atrial fibrillation on anticoagulation, history of permanent pacemaker, history of bladder cancer, and obesity who came to the emergency room with chief complaint of palpitations and substernal chest discomfort, who was found to have underlying A. fib with RVR and elevated troponins. The patient was admitted to inpatient setting for further treatment and evaluation. Hospital Course A cardiology consult was obtained. The patient was started on amiodarone, diltiazem, and digoxin with improvement in the patient's rate. The patient was noticed to be subtherapeutic in his INR although he claimed that he has been compliant with his warfarin. Therefore, the patient was started on Lovenox for bridging. The patient continued to remain in atrial fibrillation although the rate was controlled. The patient underwent a direct current cardioversion on 01/26/2019 with conversion of the rhythm to sinus rhythm. The patient had slightly elevated troponins on admission to the emergency room. The patient was ruled out for any ACS. The patient slight elevation in troponins could have been a type II event in the setting of underlying rapid A. fib. The patient's chronic problems include depression. The patient was maintained on Paxil. The patient has a history of renal cell carcinoma and he had prior refused work-up and surgery. The patient is obese with a BMI of almost 40 kg/m. The patient was advised on weight reduction. The patient has a history of pacemaker. The patient was evaluated by cardiology and patient has good outpatient cardiology follow-up. The patient had a stable hospital course. The patient's INR has been therapeutic. Therefore, the patient's Lovenox was discontinued and the patient will be discharged home, to be followed up with outpatient cardiology. The patient is very noncompliant with his medication intake including warfarin. Therefore, a clinical decision was made to not to discharge the patient on IV amiodarone and digoxin. Instead, the patient will be discharged on extended release diltiazem. The patient will immediately follow-up with Dr. Ba next week at his office. Discharge Instructions 1. Resume home medications. 2. Resume activities as tolerated. 3. Follow a low-cholesterol diet. 4. Follow-up with your business analytics intern in 2 weeks. 5. Please go to the nearest emergency room if you have any chest pain, palpitations, significant shortness of breath, or any other unusual signs/symptoms. The patient verbalized understanding of his discharge instructions. At this time I would like to thank all the consultants for seeing the patient, doing the necessary procedures, and providing clinical recommendations. The patient was seen in collaboration with Dr. Olivarez. Home Meds Active Scripts Diltiazem Hcl* (Cardizem CD*) 120 Mg Cap.sr.24h, 120 MG PO DAILY, #30 CAP Prov:LUCIA TAVERA CLINICAL REHABILITATION AIDE 01/27/19 Reported Medications Warfarin Sodium* (Coumadin*) 3 Mg Tablet, 3 MG PO TUE,THUR, TAB 01/22/19 Warfarin Sodium* (Warfarin Sodium*) 6 Mg Tablet, 6 MG PO SUN,MON,WED,FRI,SAT, TA B 01/22/19 Paroxetine Hcl* (Paxil*) 40 Mg Tablet, 40 MG PO HS, TAB 10/09/18 Atorvastatin Calcium* (Atorvastatin Calcium*) 20 Mg Tablet, 20 MG PO QHS, #30 TAB 10/09/18 Aspirin* (Aspirin* EC) 81 Mg Tablet., 81 MG PO DAILY, TAB 10/09/18 Alprazolam* (Alprazolam*) 0.5 Mg Tablet, 0.5 MG PO BID PRN for ANXIETY, TAB 10/09/18 Discontinued Reported Medications Warfarin Sodium* (Warfarin Sodium*) 6 Mg Tablet, 6 MG PO DAILY, TAB 10/09/18 Follow-up Plan Dr. Ba. Primary Care Provider Care Physician No Primary Time spent on discharge: > 30 minutes Pending Labs Laboratory Tests Test 01/27/19 05:04 White Blood Count 10.9 10^3/ul (4.8-10.8) Red Blood Count 4.61 10^6/ul (4.70-6.10) Hemoglobin 13.0 g/dl (14.0-18.0) Hematocrit 39.4 % (42.0-52.0) Mean Corpuscular Volume 85.5 fl (82.0-101.0) Mean Corpuscular Hemoglobin 28.2 pg (29.0-33.0) Mean Corpuscular Hemoglobin Concent 33.0 g/dl (32.0-37.0) Red Cell Distribution Width 13.5 % (11.5-14.5) Platelet Count 202 10^3/UL (140-415) Mean Platelet Volume 10.9 fl (7.4-10.4) Immature Granulocytes % 0.300 % (0.001-0.429) Neutrophils % 71.2 % (39.0-77.0) Lymphocytes % 20.2 % (15.0-51.0) Monocytes % 7.3 % (0.0-11.0) Eosinophils % 0.8 % (0.0-7.0) Basophils % 0.2 % (0.0-2.0) Nucleated Red Blood Cells % 0.0 /100WBC (0.0-0.0) Immature Granulocytes # 0.030 10^3/ul (0.0-0.031) Neutrophils # 7.7 10^3/ul (1.6-7.5) Lymphocytes # 2.2 10^3/ul (0.8-2.9) Monocytes # 0.8 10^3/ul (0.3-0.9) Eosinophils # 0.1 10^3/ul (0.0-0.5) Basophils # 0.0 10^3/ul (0.0-0.1) Nucleated Red Blood Cells # 0.0 10^3/ul (0.0-0.0) Sodium Level 142 mmol/L (135-144) Potassium Level 4.0 mmol/L (3.5-5.1) Chloride Level 109 mmol/L (97-110) Carbon Dioxide Level 26 mmol/L (21-31) Anion Gap 7 (5-13) Blood Urea Nitrogen 22 mg/dl (7-20) Creatinine 1.20 mg/dl (0.61-1.24) Est Glomerular Filtrat Rate mL/min > 60 mL/min (>60) Glucose Level 108 mg/dl (70-220) Calcium Level 8.9 mg/dl (8.4-10.2) Phosphorus Level 3.2 mg/dl (2.5-4.9) Magnesium Level 2.2 mg/dl (1.7-2.5) LUCIA TAVERA NP January 27, 2019 18:06
== END 2019-01-27 17:47 | disposition home or self-care (01) | DRG 282 ==
LOC: E/R 11:05 → 6WM 12:27
PROVIDERS: ADMIT Internal Medicine; ATTEND Internal Medicine
PROC: 5A2204Z Restoration of Cardiac Rhythm, Single (ICD-10-PCS; principal; 2019-01-26 12:30)
DX: I48.91 Unspecified atrial fibrillation (principal); I21.A1 Myocardial infarction type 2; E66.9 Obesity, unspecified; Z68.39 Body mass index [BMI] 39.0-39.9, adult; F32.9 Major depressive disorder, single episode, unspecified; Z95.0 Presence of cardiac pacemaker; Z91.14 Patient's other noncompliance with medication regimen; Z72.0 Tobacco use; I25.2 Old myocardial infarction
CPT/HCPCS: 36415; 71045; 80048; 80053; 80061; 82550; 82553; 83036; 83735; 84100; 84439; 84443; 84481; 84484; 85025; 85610; 85730; 92960; 93005; 93312; 93320; 96374; J0282; J7040; J7060